=== PATIENT | female | born 1950 ===

== ENCOUNTER 2019-09-08 18:20 | Inpatient (IN) | payer MEDICARE, BC ==
[2019-09-09 01:08] VITALS: BP 124/67
[2019-09-09] MEDS: Atorvastatin Calcium 10 MG TAB PO SCH (08:39)
[2019-09-09] MEDS: Levothyroxine 0.05 Mg Tab PO SCH (08:39)
[2019-09-09] MEDS: Pantoprazole 40 mg/Packet PO SCH ×2 (08:40→16:50)
[2019-09-09] MEDS: Fish Oil 1,000 MG SGL PO SCH (08:40)
[2019-09-09] MEDS: Aspirin 81mg Chewable Tab PO SCH (08:42)
[2019-09-09] MEDS: POLYETHYLENE GLYCOL 3350 17 GM PACK PO SCH (08:42)
[2019-09-09 11:14] LABS: CREATININE - SERUM 0.95 mg/dL (0.70-1.30); POTASSIUM SERUM 3.9 mmol/L (3.5-5.1)
[2019-09-09 11:15] LABS: BILIRUBIN,TOTAL 0.7 mg/dL (0.0-1.0); CALCIUM SERUM 9.5 mg/dL (8.4-10.2); RED BLOOD COUNT 4.59 MIL/uL (4.2-6.2); TOTAL PROTEIN,SERUM 7.6 g/dL (6.4-8.3); WHITE BLOOD COUNT 8.3 K/uL (4.8-10.8)
[2019-09-09 11:24] LABS: HEMATOCRIT 41.2 % (41.0-60); HEMOGLOBIN 13.6 gm/dL (12-16)
[2019-09-09 11:25] LABS: BASOPHILS % (AUTO) 0.4 % (0.0-2.0); EOSINOPHILS # (AUTO) 0.3 Th/cmm (0.1-0.4); LYMPHOCYTES # (AUTO) 2.2 Th/cmm (1.5-3.0); LYMPHOCYTES % (AUTO) 26.3 % (20.0-50.0); MEAN CORPUSCULAR HEMOGLOBIN 29.5 pg (27.0-31.0); MEAN CORPUSCULAR HGB CONC 32.9 pg (28.0-36.0); MEAN CORPUSCULAR VOLUME 89.9 fl (81-100); MONOCYTES # (AUTO) 0.6 Th/cmm (0.3-1.0); MONOCYTES % (AUTO) 7.3 % (2.0-10.0); NEUTROPHILS # (AUTO) 5.2 Th/cmm (1.8-8.0); PLATELET COUNT 265 Th/cmm (150-400); RED CELL DISTRIBUTION WIDTH 13.8 % (11.5-20.0)
--- NOTE | 2019-09-09 16:05 | History and Physical ---
History of Present Illness - HPI Chief Complaint: Psychosis HPI: * Transferred from [facility] * Admitted for Catatonia * Per transfer order, catatonia possibly due to previous medication titration at previous psychiatric hospital Vital Signs: Last Vital Signs Temp 98.6 F 09/09/19 14:00 Pulse 66 09/09/19 14:00 Resp 20 09/09/19 14:00 BP 146/73 09/09/19 14:00 Pulse Ox 95 09/09/19 14:00 Past Medical History Cardiovascular: Report: CAD, HTN, Hyperlipidemia GAME PROGRAMER: Report: CVA, Peripheral neuropathy Psych: Report: Bipolar, Other (Catatonia Insomnia) Musculoskeletal: Report: Other (Impaired functional mobility, balance and gait) Rheumatologic: Report: Fibromyalgia Renal/: Report: UTI Endocrine: Report: Hypothyroidism - Past Surgical History Past Surgical History: Cholecystectomy, Other (Total Abdominal Hysterectomy) Family Medical History - Family Member Mother Living Status: Unknown Hx Family Coronary Artery Disease: Yes Hx Family Diabetes: Yes Other Medical History: heart attack Social History Smoke: No Alcohol: None Drugs: None Lives: With Family - Medications Home Medications: Home Medication Medication Instructions Recorded Type Aspirin [Aspirin Chewable] 1 tab PO DAILY 09/09/19 History Atorvastatin Calcium [Lipitor] 10 mg PO DAILY 09/09/19 History Clopidogrel [Plavix] 75 mg PO DAILY 09/09/19 History Fish Oil [[place] 3] 1,000 mg PO DAILY 09/09/19 History Levothyroxine [Synthroid] 50 mcg PO DAILY 09/09/19 History Losartan Potassium [Cozaar] 25 mg PO DAILY 09/09/19 History Pantoprazole Sodium [Protonix] 20 mg PO BIDAC 09/09/19 History Polyethylene Glycol 3350 [Miralax] 17 gm PO DAILY 09/09/19 History Sennosides A and B [Senna] 2 tab PO HS 09/09/19 History amLODIPine Besylate [Norvasc] 10 mg PO DAILY 09/09/19 History - Allergies Allergies/Adverse Reactions: Allergies Allergy/AdvReac Type Severity Reaction Status Date / Time codeine Allergy Unknown Verified 09/09/19 01:05 amlodipine Allergy Verified 09/09/19 01:07 propoxyphene Allergy Verified 09/09/19 01:06 Sulfa (Sulfonamide Allergy Verified 09/09/19 01:06 Antibiotics) valsartan Allergy Verified 09/09/19 01:07 Review of Systems - Review of Systems Constitutional: Report: Weakness, Malaise Eyes: Report: No Significant ENT: Report: No Significant Respiratory: Report: No Significant Cardiovascular: Report: No Significant Gastrointestinal: Report: No Significant Genitourinary: Report: No Significant Musculoskeletal: Report: No Significant Skin: Report: No Significant Neurological: Report: Weakness, Confusion Physical Exam - Physical Exam HEENT: Report: Ears Nose Throat within normal limits, Pharnyx within normal limits Neck: Report: Within normal limits Cardiovascular Systems: Report: Regular, Rate and Rhythm, no murmurs noted Respiratory: Report: Clear to Auscultation of lung ridley, Breath Sounds are within normal limits Abdomen: Report: Non-tender to palpation, Bowel Sounds are within normal limits Back: Report: Inspection of back is within normal limits. Extremities: Report: Non-tender to palpation., No pedal edema was noted on inspection Skin: Report: Color of skin is within normal limits, Warm, Dry, No Rashes noted of the skin Neuro/Psych: Report: A+Ox3 (Grossly intact), Other (Grossly intact) Other Systems Exam: Unable to do Cranial Nerve Assessment due to patient's catatonic state Patient is unable to participate in examination - Lab Results All Lab Results last 24 hours: Laboratory Results - last 24 hr 09/09/19 09/09/19 09:40 09:40 WBC 8.3 RBC 4.59 Hgb 13.6 Hct 41.2 MCV 89.9 MCH 29.5 MCHC Differential 32.9 RDW 13.8 Plt Count 265 MPV 9.0 Neutrophils % 63.0 Lymphocytes % 26.3 Monocytes % 7.3 Eosinophils % 3.0 Basophils % 0.4 Sodium 137 Potassium 3.9 Chloride 102 Carbon Dioxide 25 Anion Gap 14 BUN 8 Creatinine 0.95 Glucose 114 H Calcium 9.5 Total Bilirubin 0.7 AST 25 ALT 36 Alkaline Phosphatase 140 H Total Protein 7.6 Albumin 3.4 - Assessment Assessment: * Catatonia * H/O UTI * Bipolar Disorder (Type I) * Impaired functional mobility, balance and gait * CVD * Hypothyroidism * Hyperlipidemia * Hypertension * Fibromyalgia * Insomnia * Neuropathy * s/p ELISSA * s/p Cholecystectomy - Plan Plan: * Admitted to [facility]ero[facility] Unit * Psychiatry Consult * Continue home meds * Continue meds from previous hospital * Obtain labs in am
--- NOTE | 2019-09-10 00:34 | Psychiatric Evaluation ---
DATE OF SERVICE: PSYCHIATRIC INITIAL EVALUATION AND MENTAL STATUS EXAMINATION AGE: 69. SEX: Female. PHYSICIAN: Dr. Harris. Also, Dr. Ford. CHIEF COMPLAINT: Catatonic behavior. HISTORY OF PRESENT ILLNESS: The patient is a 69-year-old female who was transferred to the hospital from [facility] because of persistent catatonia. The patient's brought her to the [facility] for evaluation. The patient was released after she was in inpatient psychiatric hospital for 17 days and after from staying home, the patient's brought her back to [facility]. The patient was started of Seroquel, according to the records and the patient was started on Zoloft and Aricept since she was discharged. The patient has been refusing to take medications and the patient also has not been eating or drinking much. The patient also has not been able to talk or verbalize her feelings. The patient is still catatonic and nonverbal. The patient also was not taking any psychotropic except Ativan. The patient also still has flat affect and poor intake. PAST PSYCHIATRIC HISTORY: The patient has history of bipolar disorder and the patient was on Seroquel. She also was taking Zoloft, both were tapered. Currently on oral Ativan on p.r.n. basis. PAST MEDICAL HISTORY: The patient has a history of urinary tract infection. The patient also has currently poor intake. The patient has also history of hypercholesterolemia, hypertension, neuropathy and hypothyroidism. SOCIAL HISTORY: The patient is and lives with her . FAMILY MEDICAL HISTORY: There is history of diabetes mellitus and heart problems in the family. SOCIAL HISTORY: The patient is and lives with her . She is unemployed. The patient does not drink alcohol or use any street drugs or smoking cigarettes. ALLERGIES: The patient is allergic to CODEINE and SULFA DRUGS as well as AMLODIPINE and PROPOXYPHENE. MENTAL STATUS EXAMINATION: The patient has flat affect. Mood seems to be depressed. Not answering questions. The patient seems to be preoccupied and responding. The patient is alert, but unable to assess her orientation or memory because of lack of response and answering to questions because of her catatonia. Poor insight and judgment. ASSESSMENT: PRIMARY DIAGNOSIS: Bipolar disorder, depressed episode, severe. SECONDARY DIAGNOSIS: Catatonia. MEDICAL DIAGNOSES: 1. Hypertension. 2. Hyperlipidemia. 3. Hypothyroidism. TREATMENT PLAN: Monitor the patient's behavior and condition closely. Hold psychotropic medications until further evaluation. Also, continue Ativan on a p.r.n. basis. ESTIMATED LENGTH OF STAY: 7-10 days. PATIENT'S STRENGTHS AND WEAKNESSES: The patient seems to be in relatively fair health. She also has supportive . Weaknesses is her ineffective coping and catatonia. AFTER DISCHARGE PLAN: Most probably, the patient will return to live with her after resolving her catatonic features. Outpatient treatment and followup to continue as an outpatient. CRITERIA FOR DISCHARGE: The patient will not be catatonic and will stabilize on psychotropic medications and establish outpatient treatment plans. JOB# [id number]
[2019-09-10] MEDS: Pantoprazole 40 mg/Packet PO SCH ×2 (06:38→15:33)
[2019-09-10] MEDS: POLYETHYLENE GLYCOL 3350 17 GM PACK PO SCH (09:14)
[2019-09-10] MEDS: Levothyroxine 0.05 Mg Tab PO SCH (09:14)
[2019-09-10] MEDS: Atorvastatin Calcium 10 MG TAB PO SCH (09:14)
[2019-09-10] MEDS: Fish Oil 1,000 MG SGL PO SCH (09:14)
[2019-09-10] MEDS: Aspirin 81mg Chewable Tab PO SCH (09:14)
--- NOTE | 2019-09-10 13:48 | Internal Medicine Prog Note ---
Internal Medicine Subjective - Subjective Service Date: 09/10/19 Patient seen and examined:: without staff Patient is:: awake Per staff patient has:: no adverse event, no episodes of fall Internal Medicine Objective - Results Result Diagrams: 09/09/19 09:40 09/09/19 09:40 Recent Labs: Laboratory Last Values WBC 8.3 K/uL (4.8-10.8) 09/09/19 09:40 RBC 4.59 MIL/uL (4.2-6.2) 09/09/19 09:40 Hgb 13.6 gm/dL (12-16) 09/09/19 09:40 Hct 41.2 % (41.0-60) 09/09/19 09:40 MCV 89.9 fl (81-100) 09/09/19 09:40 MCH 29.5 pg (27.0-31.0) 09/09/19 09:40 MCHC Differential 32.9 pg (28.0-36.0) 09/09/19 09:40 RDW 13.8 % (11.5-20.0) 09/09/19 09:40 Plt Count 265 Th/cmm (150-400) 09/09/19 09:40 MPV 9.0 fl 09/09/19 09:40 Neutrophils % 63.0 % (40.0-80.0) 09/09/19 09:40 Lymphocytes % 26.3 % (20.0-50.0) 09/09/19 09:40 Monocytes % 7.3 % (2.0-10.0) 09/09/19 09:40 Eosinophils % 3.0 % (0.0-5.0) 09/09/19 09:40 Basophils % 0.4 % (0.0-2.0) 09/09/19 09:40 Sodium 137 mmol/L (136-145) 09/09/19 09:40 Potassium 3.9 mmol/L (3.5-5.1) 09/09/19 09:40 Chloride 102 mmol/L (98-107) 09/09/19 09:40 Carbon Dioxide 25 mmol/L (23-29) 09/09/19 09:40 Anion Gap 14 (5-15) 09/09/19 09:40 BUN 8 mg/dL (8-21) 09/09/19 09:40 Creatinine 0.95 mg/dL (0.70-1.30) 09/09/19 09:40 Glucose 114 mg/dL (70-99) H 09/09/19 09:40 Calcium 9.5 mg/dL (8.4-10.2) 09/09/19 09:40 Total Bilirubin 0.7 mg/dL (0.0-1.0) 09/09/19 09:40 AST 25 U/L (10-37) 09/09/19 09:40 ALT 36 U/L (12-78) 09/09/19 09:40 Alkaline Phosphatase 140 U/L (46-116) H 09/09/19 09:40 Total Protein 7.6 g/dL (6.4-8.3) 09/09/19 09:40 Albumin 3.4 g/dL (3.4-5.0) 09/09/19 09:40 - Physical Exam Vitals and I&O: Vital Signs Temp 98.6 F 09/10/19 06:44 Pulse 74 09/10/19 06:44 Resp 19 09/10/19 08:00 BP 144/71 09/10/19 06:44 Pulse Ox 92 09/10/19 06:44 Intake & Output 09/09/19 09/10/19 09/10/19 18:59 06:59 18:59 Intake Total 820 120 Balance 820 120 Intake: Oral 820 120 Other: # Voids 1 # Bowel Movements 1 0 Active Medications: Current Medications Acetaminophen (Tylenol) 650 mg PO Q4H PRN PRN Reason: Pain (Mild 1-3) Stop: 11/08/19 01:07 Last Admin: 09/09/19 10:15 Dose: 650 mg Aspirin (Aspirin Chewable) 81 mg PO QDPC [facility] Stop: 11/08/19 08:59 Last Admin: 09/10/19 09:14 Dose: 81 mg Atorvastatin Calcium (Lipitor) 10 mg PO DAILY [facility]; Protocol Stop: 11/08/19 08:59 Last Admin: 09/10/19 09:14 Dose: 10 mg Clopidogrel Bisulfate (Plavix) 75 mg PO DAILY [facility] Stop: 11/08/19 08:59 Last Admin: 09/10/19 09:14 Dose: 75 mg Fish Oil ([place] 3) 1,000 mg PO DAILY [facility] Stop: 11/08/19 08:59 Last Admin: 09/10/19 09:14 Dose: 1,000 mg Levofloxacin (Levaquin) 500 mg PO DAILY [facility] Stop: 09/15/19 09:01 Last Admin: 09/10/19 09:14 Dose: 500 mg Levothyroxine Sodium (Synthroid) 0.05 mg PO DAILY [facility] Stop: 11/08/19 08:59 Last Admin: 09/10/19 09:14 Dose: 0.05 mg Lorazepam (Ativan) 0.5 mg PO Q4HR PRN; Protocol PRN Reason: Anxiety Stop: 10/09/19 01:07 Mirtazapine (Remeron) 7.5 mg PO HS [facility]; Protocol Stop: 11/09/19 20:59 Pantoprazole Sodium (Protonix) 20 mg PO BIDAC [facility] Stop: 11/08/19 07:29 Last Admin: 09/10/19 06:38 Dose: 20 mg Polyethylene Glycol (Miralax) 17 gm PO DAILY [facility] Stop: 11/08/19 08:59 Last Admin: 09/10/19 09:14 Dose: 17 gm Senna (Senna) 17.2 mg PO HS [facility] Stop: 11/08/19 20:59 Last Admin: 09/09/19 20:39 Dose: 17.2 mg Zolpidem Tartrate (Ambien) 5 mg PO HSMR1 PRN PRN Reason: Insomnia Stop: 11/08/19 01:07 General: weak HEENT: NC/AT, PERRLA Neck: Supple Lungs: CTAB Cardiovascular: RRR, Normal S1, Normal S2 Abdomen: soft Extremities: clear Internal Medicine Assmt/Plan - Assessment Assessment: 1. HTN 2. Hx of CVA 3. Hypothyroidism - Plan Plan: continue supportive care continue same meds reviewed medical records from outside hospital d/w r.n.
--- NOTE | 2019-09-10 17:08 | Progress Notes ---
DATE: 09/10/2019 SUBJECTIVE: A 69-year-old female transferred to the hospital from [facility] with persistent catatonia. The patient's brought the patient to the hospital. She had already been at another hospital. The patient mostly stares blankly, not really interactive, just knows her name. She does not know where she is or why she is here. She does not know the year, the month. The patient with an apparent history of poor medication compliance, currently on dosing of atorvastatin. The patient poorly oriented. She is taking her medications. The patient is able to follow some basic commands directions. MENTAL STATUS EXAMINATION: Stated age, fair eye contact, staring blankly, says almost nothing, hard to interview because she really just is very distracted. Difficult to in fact fully assess her thought processes. PLAN: We will continue to monitor, somewhat complex case given that she is hard to interview. Going to start her on a small dose of mirtazapine to try to alleviate her depressive symptoms. We will continue to monitor on an inpatient basis. [facility]# [id number]
[2019-09-11] MEDS: Pantoprazole 40 mg/Packet PO SCH ×2 (06:39→15:53)
[2019-09-11] MEDS: Levothyroxine 0.05 Mg Tab PO SCH (09:16)
[2019-09-11] MEDS: POLYETHYLENE GLYCOL 3350 17 GM PACK PO SCH (09:16)
[2019-09-11] MEDS: Fish Oil 1,000 MG SGL PO SCH (09:17)
[2019-09-11] MEDS: Atorvastatin Calcium 10 MG TAB PO SCH (09:17)
[2019-09-11] MEDS: Aspirin 81mg Chewable Tab PO SCH (09:17)
--- NOTE | 2019-09-11 13:34 | Internal Medicine Prog Note ---
Internal Medicine Subjective - Subjective Service Date: 09/11/19 Patient seen and examined:: without staff (still saying things that don't make sense) Patient is:: awake Per staff patient has:: no adverse event, no episodes of fall Internal Medicine Objective - Results Result Diagrams: 09/09/19 09:40 09/09/19 09:40 Recent Labs: Laboratory Last Values WBC 8.3 K/uL (4.8-10.8) 09/09/19 09:40 RBC 4.59 MIL/uL (4.2-6.2) 09/09/19 09:40 Hgb 13.6 gm/dL (12-16) 09/09/19 09:40 Hct 41.2 % (41.0-60) 09/09/19 09:40 MCV 89.9 fl (81-100) 09/09/19 09:40 MCH 29.5 pg (27.0-31.0) 09/09/19 09:40 MCHC Differential 32.9 pg (28.0-36.0) 09/09/19 09:40 RDW 13.8 % (11.5-20.0) 09/09/19 09:40 Plt Count 265 Th/cmm (150-400) 09/09/19 09:40 MPV 9.0 fl 09/09/19 09:40 Neutrophils % 63.0 % (40.0-80.0) 09/09/19 09:40 Lymphocytes % 26.3 % (20.0-50.0) 09/09/19 09:40 Monocytes % 7.3 % (2.0-10.0) 09/09/19 09:40 Eosinophils % 3.0 % (0.0-5.0) 09/09/19 09:40 Basophils % 0.4 % (0.0-2.0) 09/09/19 09:40 Sodium 137 mmol/L (136-145) 09/09/19 09:40 Potassium 3.9 mmol/L (3.5-5.1) 09/09/19 09:40 Chloride 102 mmol/L (98-107) 09/09/19 09:40 Carbon Dioxide 25 mmol/L (23-29) 09/09/19 09:40 Anion Gap 14 (5-15) 09/09/19 09:40 BUN 8 mg/dL (8-21) 09/09/19 09:40 Creatinine 0.95 mg/dL (0.70-1.30) 09/09/19 09:40 Glucose 114 mg/dL (70-99) H 09/09/19 09:40 Calcium 9.5 mg/dL (8.4-10.2) 09/09/19 09:40 Total Bilirubin 0.7 mg/dL (0.0-1.0) 09/09/19 09:40 AST 25 U/L (10-37) 09/09/19 09:40 ALT 36 U/L (12-78) 09/09/19 09:40 Alkaline Phosphatase 140 U/L (46-116) H 09/09/19 09:40 Total Protein 7.6 g/dL (6.4-8.3) 09/09/19 09:40 Albumin 3.4 g/dL (3.4-5.0) 09/09/19 09:40 - Physical Exam Vitals and I&O: Vital Signs Temp 97.9 F 09/11/19 06:04 Pulse 66 09/11/19 06:04 Resp 18 09/11/19 07:37 BP 138/69 09/11/19 06:04 Pulse Ox 93 09/11/19 06:04 Intake & Output 09/10/19 09/11/19 09/11/19 18:59 06:59 18:59 Intake Total 1000 240 Balance 1000 240 Intake: Oral 1000 240 Other: # Voids 3 2 # Bowel Movements 1 Active Medications: Current Medications Acetaminophen (Tylenol) 650 mg PO Q4H PRN PRN Reason: Pain (Mild 1-3) Stop: 11/08/19 01:07 Last Admin: 09/10/19 15:03 Dose: 650 mg Aspirin (Aspirin Chewable) 81 mg PO QDPC [facility] Stop: 11/08/19 08:59 Last Admin: 09/11/19 09:17 Dose: 81 mg Atorvastatin Calcium (Lipitor) 10 mg PO DAILY [facility]; Protocol Stop: 11/08/19 08:59 Last Admin: 09/11/19 09:17 Dose: 10 mg Clopidogrel Bisulfate (Plavix) 75 mg PO DAILY [facility] Stop: 11/08/19 08:59 Last Admin: 09/11/19 09:17 Dose: 75 mg Fish Oil ([place] 3) 1,000 mg PO DAILY [facility] Stop: 11/08/19 08:59 Last Admin: 09/11/19 09:17 Dose: 1,000 mg Levofloxacin (Levaquin) 500 mg PO DAILY [facility] Stop: 09/15/19 09:01 Last Admin: 09/11/19 09:17 Dose: 500 mg Levothyroxine Sodium (Synthroid) 0.05 mg PO DAILY [facility] Stop: 11/08/19 08:59 Last Admin: 09/11/19 09:16 Dose: 0.05 mg Lorazepam (Ativan) 0.5 mg PO Q4HR PRN; Protocol PRN Reason: Anxiety Stop: 10/09/19 01:07 Mirtazapine (Remeron) 7.5 mg PO HS [facility]; Protocol Stop: 11/09/19 20:59 Last Admin: 09/10/19 21:10 Dose: 7.5 mg Pantoprazole Sodium (Protonix) 20 mg PO BIDAC [facility] Stop: 11/08/19 07:29 Last Admin: 09/11/19 06:39 Dose: 20 mg Polyethylene Glycol (Miralax) 17 gm PO DAILY [facility] Stop: 11/08/19 08:59 Last Admin: 09/11/19 09:16 Dose: 17 gm Senna (Senna) 17.2 mg PO HS [facility] Stop: 11/08/19 20:59 Last Admin: 09/10/19 21:10 Dose: 17.2 mg Zolpidem Tartrate (Ambien) 5 mg PO HSMR1 PRN PRN Reason: Insomnia Stop: 11/08/19 01:07 Last Admin: 09/10/19 21:10 Dose: 5 mg General: weak HEENT: NC/AT, PERRLA Neck: Supple Lungs: CTAB Cardiovascular: RRR, Normal S1, Normal S2 Abdomen: soft Extremities: clear Internal Medicine Assmt/Plan - Assessment Assessment: 1. HTN 2. Hx of CVA 3. Hypothyroidism 4. UTI - Plan Plan: continue Levaquin continue same meds reviewed medical records from outside hospital d/w r.n.
--- NOTE | 2019-09-11 14:51 | Progress Notes ---
DATE: 09/11/2019 SUBJECTIVE: This is a 69-year-old female, currently in the hospital, noted to be withdrawn, isolative, slow to respond, not answering when I ask her any questions, but per staff, she sometimes tells staff her name. Slept for about 8-1/2 hours, mostly withdrawn, mostly keeps to self, very difficult interview. She does not really say much to me. I tried to talk to her, but do not get much feedback from her. Discussed with staff at length. Slept better with the Remeron. PLAN: We will continue inpatient monitoring. This is a 69-year-old female with ongoing behavioral disturbances, slow to respond. Continue slow titration of medication. JOB# [id number]
[2019-09-12] MEDS: Pantoprazole 40 mg/Packet PO SCH ×2 (06:41→16:26)
[2019-09-12] MEDS: Aspirin 81mg Chewable Tab PO SCH (08:09)
[2019-09-12] MEDS: Levothyroxine 0.05 Mg Tab PO SCH (08:09)
[2019-09-12] MEDS: Atorvastatin Calcium 10 MG TAB PO SCH (08:09)
[2019-09-12] MEDS: Fish Oil 1,000 MG SGL PO SCH (08:11)
[2019-09-12] MEDS: POLYETHYLENE GLYCOL 3350 17 GM PACK PO SCH (08:28)
--- NOTE | 2019-09-12 16:57 | Progress Notes ---
DATE: 09/12/2019 SUBJECTIVE: A 69-year-old female transferred to the hospital from [facility]. Persistent catatonia. Apparently, the patient is not overtly catatonic. She is answering some questions. She tells me her name. She tells me she is in the hospital. She does not know the year. She does not know the month, stating this is February, stating that it is 1934, contacted me I will be trying to reach out to him today. The patient requiring a lot of prompting, redirection, mostly stares blankly, lying in bed, able to swallow her medications. The patient mostly withdrawn, keeps to self, just stares blankly. No overt agitation, concerns about her ability to care for her basic needs, selectively mute in the last month. She apparently declined as to why she ended up in the hospital. Medications were reviewed. Labs reviewed. Vitals reviewed, blood pressure 144/85, pulse 64. ASSESSMENT: A 69-year-old female catatonic spectrum. She is minimally interactive, needing a lot of prompting, redirection, contact her today to increase information. The patient currently on dosing of Remeron. JOB# [id number]
--- NOTE | 2019-09-12 17:38 | Progress Notes ---
DATE: 09/12/2019 I contacted the patient's at [phone], line just kept ringing and ringing and ringing, no answer, no voice mailbox. JOB# [id number]
--- NOTE | 2019-09-12 18:36 | Internal Medicine Prog Note ---
Internal Medicine Subjective - Subjective Service Date: 09/12/19 Patient seen and examined:: without staff Patient is:: awake Per staff patient has:: no adverse event, no episodes of fall Internal Medicine Objective - Results Result Diagrams: 09/09/19 09:40 09/09/19 09:40 Recent Labs: Laboratory Last Values WBC 8.3 K/uL (4.8-10.8) 09/09/19 09:40 RBC 4.59 MIL/uL (4.2-6.2) 09/09/19 09:40 Hgb 13.6 gm/dL (12-16) 09/09/19 09:40 Hct 41.2 % (41.0-60) 09/09/19 09:40 MCV 89.9 fl (81-100) 09/09/19 09:40 MCH 29.5 pg (27.0-31.0) 09/09/19 09:40 MCHC Differential 32.9 pg (28.0-36.0) 09/09/19 09:40 RDW 13.8 % (11.5-20.0) 09/09/19 09:40 Plt Count 265 Th/cmm (150-400) 09/09/19 09:40 MPV 9.0 fl 09/09/19 09:40 Neutrophils % 63.0 % (40.0-80.0) 09/09/19 09:40 Lymphocytes % 26.3 % (20.0-50.0) 09/09/19 09:40 Monocytes % 7.3 % (2.0-10.0) 09/09/19 09:40 Eosinophils % 3.0 % (0.0-5.0) 09/09/19 09:40 Basophils % 0.4 % (0.0-2.0) 09/09/19 09:40 Sodium 137 mmol/L (136-145) 09/09/19 09:40 Potassium 3.9 mmol/L (3.5-5.1) 09/09/19 09:40 Chloride 102 mmol/L (98-107) 09/09/19 09:40 Carbon Dioxide 25 mmol/L (23-29) 09/09/19 09:40 Anion Gap 14 (5-15) 09/09/19 09:40 BUN 8 mg/dL (8-21) 09/09/19 09:40 Creatinine 0.95 mg/dL (0.70-1.30) 09/09/19 09:40 Glucose 114 mg/dL (70-99) H 09/09/19 09:40 Calcium 9.5 mg/dL (8.4-10.2) 09/09/19 09:40 Total Bilirubin 0.7 mg/dL (0.0-1.0) 09/09/19 09:40 AST 25 U/L (10-37) 09/09/19 09:40 ALT 36 U/L (12-78) 09/09/19 09:40 Alkaline Phosphatase 140 U/L (46-116) H 09/09/19 09:40 Total Protein 7.6 g/dL (6.4-8.3) 09/09/19 09:40 Albumin 3.4 g/dL (3.4-5.0) 09/09/19 09:40 - Physical Exam Vitals and I&O: Vital Signs Temp 97 F 09/12/19 16:30 Pulse 58 09/12/19 16:30 Resp 20 09/12/19 16:30 BP 166/69 09/12/19 16:30 Pulse Ox 96 09/12/19 16:30 Intake & Output 09/11/19 09/12/19 09/12/19 18:59 06:59 18:59 Intake Total 850 120 Balance 850 120 Intake: Oral 850 120 Other: # Voids 2 # Bowel Movements 1 0 Active Medications: Current Medications Acetaminophen (Tylenol) 650 mg PO Q4H PRN PRN Reason: Pain (Mild 1-3) Stop: 11/08/19 01:07 Last Admin: 09/12/19 10:06 Dose: 650 mg Aspirin (Aspirin Chewable) 81 mg PO QDPC [facility] Stop: 11/08/19 08:59 Last Admin: 09/12/19 08:09 Dose: 81 mg Atorvastatin Calcium (Lipitor) 10 mg PO DAILY [facility]; Protocol Stop: 11/08/19 08:59 Last Admin: 09/12/19 08:09 Dose: 10 mg Clopidogrel Bisulfate (Plavix) 75 mg PO DAILY [facility] Stop: 11/08/19 08:59 Last Admin: 09/12/19 08:10 Dose: 75 mg Fish Oil ([place] 3) 1,000 mg PO DAILY [facility] Stop: 11/08/19 08:59 Last Admin: 09/12/19 08:11 Dose: 1,000 mg Levofloxacin (Levaquin) 500 mg PO DAILY [facility] Stop: 09/15/19 09:01 Last Admin: 09/12/19 08:10 Dose: 500 mg Levothyroxine Sodium (Synthroid) 0.05 mg PO DAILY [facility] Stop: 11/08/19 08:59 Last Admin: 09/12/19 08:09 Dose: 0.05 mg Lorazepam (Ativan) 0.5 mg PO Q4HR PRN; Protocol PRN Reason: Anxiety Stop: 10/09/19 01:07 Mirtazapine (Remeron) 7.5 mg PO HS [facility]; Protocol Stop: 11/09/19 20:59 Last Admin: 09/11/19 20:56 Dose: 7.5 mg Pantoprazole Sodium (Protonix) 20 mg PO BIDAC [facility] Stop: 11/08/19 07:29 Last Admin: 09/12/19 16:26 Dose: 20 mg Polyethylene Glycol (Miralax) 17 gm PO DAILY [facility] Stop: 11/08/19 08:59 Last Admin: 09/12/19 08:28 Dose: 17 gm Senna (Senna) 17.2 mg PO HS [facility] Stop: 11/08/19 20:59 Last Admin: 09/11/19 20:55 Dose: 17.2 mg Zolpidem Tartrate (Ambien) 5 mg PO HSMR1 PRN PRN Reason: Insomnia Stop: 11/08/19 01:07 Last Admin: 09/11/19 20:55 Dose: 5 mg General: weak HEENT: NC/AT, PERRLA Neck: Supple Lungs: CTAB Cardiovascular: RRR, Normal S1, Normal S2 Abdomen: soft Extremities: clear Internal Medicine Assmt/Plan - Assessment Assessment: 1. HTN 2. Hx of CVA 3. Hypothyroidism - Plan Plan: check TSH continue same meds reviewed medical records from outside hospital d/w r.n. Nutritional Asmnt/Malnutr-PDOC - Dietary Evaluation Malnutrition Findings (Please click <Entered> for more info): Nutritional Asmnt/Malnutrition Start: 09/12/19 16: 23 Text: Status: Complete Freq: Protocol: Document 09/12/19 16:23 KAVON (Rec: 09/12/19 16:28 KAVON [email or web address] -[id number]) Nutritional Asmnt/Malnutrition Patient General Information Nutritional Screening Moderate Risk Diagnosis catatonia Pertinent Medical Hx/Surgical Hx CAD, HTN, Hyperlipidemia, CVA, Peripheral neuropathy, Bipolar, Catatonia insomnia, Fibromyalgia, UTI, Hypothyroidism, Cholecystectomy, Total abdominal hysterectomy Subjective Information Pt is a 53-year-old male admitted on 09/07 d/t catatonia . Pt is eating an estimated 53 % x3days of meals Per Meal/ Nutrition Activity Record. Dietary is currently providing an estimated 2000 kcals and 102 gm Pro, per Pt PO intake this is providing an estimated 1060 kcals and 54gm Pro to meet 79% kcal and 98% Pro needs- adequate. Per nurse note (09/10), SW spoke with pts and he stated pt is independent, makes her own food, eats on her own and they take care of one another. Recommending diet Rx modification, add Cardiac d/t BMI >30- completed. Visited pt in room, pt stated she does the cooking at home, but doesnt follow any diet and just cooks what she wants. Pt stated she does not try to eat a lot of healthy foods but would accept take home education materials to read once out, will place in d/c packet. Anthropometrics HT: 55 WT: 215 LB (97.7 kg) ABW: 147.5 (67.0 kg) BMI: 35.77 (Obese Class II) GI/ Skin Integrity GI: WNL, Soft, Non-tender BM: 09/10 x1 I/O: 970/Not Noted Skin: Dryness, pink lower back Mart: 18 Diet Order: Mechanical Soft, Cardiac Estimated Energy Needs: (Obese , ABW) 9212-2324 kcals (20-25 kcals/ kg) 55-65g Pro (0.8-1.0 g/kg) 2461-0319 ml (20-25 ml/kg) Current Diet Order/ Nutrition Support Mechanical Soft, Cardiac Patient / S.O Can Pertinent Medications Plavix, [place]-3, Synthroid, Protonix, Miralax, Senna Pertinent Labs 09/08: Glucose 114, Alk Phos 140 Nutritional Hx/Data Height 1.65 m Height (Calculated Centimeters) 165.1 Current Weight (lbs) 97.522 kg Weight (Calculated Kilograms) 97.5 Weight (Calculated Grams) 45358.4 [place] Body Weight 125 LB (56.82 kg) % [place] Body Weight 172 Body Mass Index (BMI) 35.7 Weight Status Obese GI Symptoms Last BM 09/10 x1 Usual diet at home Regular, does not follow diet Skin Integrity/Comment: Skin: Dryness, pink lower back Mart: 18 Current %PO Fair (50-74%) Estimated Nutritional Goals BEE in Kcals: Adj wt of IBW Calories/Kcals/Kg 20-25 Kcals Calculated 2169-3884 Protein: Adj wt of IBW Protein g/k.8-1.0 Protein Calculated 55-65 Fluid: ml 1540-7618 ml (20-25 ml/kg) Nutritional Problem 2. Problem Problem Food and Nutrition related knowledge deficit Etiology r/t obesity Signs/Symptoms: aeb pt report of cooking what she likes, not following any healthy diet. 1. Problem Problem Obese (Class II) Etiology related to chronic energy overconsumption Signs/Symptoms: as evidenced by BMI >30 (35.77 ). Malnutrition Related to Morbid Obesity Malnutrition related to morbid obesity No Intervention/Recommendation Comments 1.Recommend adding Cardiac to current diet Rx-completed. 2.Basic healthy eating nutrition education in person and take home materials- completed. Expected Outcomes/Goals Expected Outcomes/Goals 1.PO intake to continue to meet >75% of estimated nutritional needs. 2.Monitor PO intake, wt, nutrition related labs, and skin integrity to trend WNL. 3.Gradual wt loss (0.5-1 LB per week) trading towards IBW preferred. 4.F/U as low risk in 7-10 days , -09/21.
[2019-09-13] MEDS: Pantoprazole 40 mg/Packet PO SCH ×2 (06:34→16:46)
[2019-09-13] MEDS: Fish Oil 1,000 MG SGL PO SCH (08:20)
[2019-09-13] MEDS: Atorvastatin Calcium 10 MG TAB PO SCH (08:20)
[2019-09-13] MEDS: Aspirin 81mg Chewable Tab PO SCH (08:20)
[2019-09-13] MEDS: Levothyroxine 0.05 Mg Tab PO SCH (08:20)
[2019-09-13] MEDS: POLYETHYLENE GLYCOL 3350 17 GM PACK PO SCH (08:21)
--- NOTE | 2019-09-13 15:44 | Internal Medicine Prog Note ---
Internal Medicine Subjective - Subjective Service Date: 09/13/19 Patient seen and examined:: without staff Patient is:: awake Per staff patient has:: no adverse event, no episodes of fall Internal Medicine Objective - Results Result Diagrams: 09/09/19 09:40 09/09/19 09:40 Recent Labs: Laboratory Last Values WBC 8.3 K/uL (4.8-10.8) 09/09/19 09:40 RBC 4.59 MIL/uL (4.2-6.2) 09/09/19 09:40 Hgb 13.6 gm/dL (12-16) 09/09/19 09:40 Hct 41.2 % (41.0-60) 09/09/19 09:40 MCV 89.9 fl (81-100) 09/09/19 09:40 MCH 29.5 pg (27.0-31.0) 09/09/19 09:40 MCHC Differential 32.9 pg (28.0-36.0) 09/09/19 09:40 RDW 13.8 % (11.5-20.0) 09/09/19 09:40 Plt Count 265 Th/cmm (150-400) 09/09/19 09:40 MPV 9.0 fl 09/09/19 09:40 Neutrophils % 63.0 % (40.0-80.0) 09/09/19 09:40 Lymphocytes % 26.3 % (20.0-50.0) 09/09/19 09:40 Monocytes % 7.3 % (2.0-10.0) 09/09/19 09:40 Eosinophils % 3.0 % (0.0-5.0) 09/09/19 09:40 Basophils % 0.4 % (0.0-2.0) 09/09/19 09:40 Sodium 137 mmol/L (136-145) 09/09/19 09:40 Potassium 3.9 mmol/L (3.5-5.1) 09/09/19 09:40 Chloride 102 mmol/L (98-107) 09/09/19 09:40 Carbon Dioxide 25 mmol/L (23-29) 09/09/19 09:40 Anion Gap 14 (5-15) 09/09/19 09:40 BUN 8 mg/dL (8-21) 09/09/19 09:40 Creatinine 0.95 mg/dL (0.70-1.30) 09/09/19 09:40 Glucose 114 mg/dL (70-99) H 09/09/19 09:40 Calcium 9.5 mg/dL (8.4-10.2) 09/09/19 09:40 Total Bilirubin 0.7 mg/dL (0.0-1.0) 09/09/19 09:40 AST 25 U/L (10-37) 09/09/19 09:40 ALT 36 U/L (12-78) 09/09/19 09:40 Alkaline Phosphatase 140 U/L (46-116) H 09/09/19 09:40 Total Protein 7.6 g/dL (6.4-8.3) 09/09/19 09:40 Albumin 3.4 g/dL (3.4-5.0) 09/09/19 09:40 - Physical Exam Vitals and I&O: Vital Signs Temp 97.7 F 09/13/19 06:25 Pulse 62 09/13/19 06:25 Resp 20 09/13/19 06:25 BP 155/72 09/13/19 06:25 Pulse Ox 96 09/13/19 06:25 Intake & Output 09/12/19 09/13/19 09/13/19 18:59 06:59 18:59 Intake Total 240 Balance 240 Intake: Oral 240 Other: # Voids 2 # Bowel Movements 0 Active Medications: Current Medications Acetaminophen (Tylenol) 650 mg PO Q4H PRN PRN Reason: Pain (Mild 1-3) Stop: 11/08/19 01:07 Last Admin: 09/12/19 10:06 Dose: 650 mg Aspirin (Aspirin Chewable) 81 mg PO QDPC [facility] Stop: 11/08/19 08:59 Last Admin: 09/13/19 08:20 Dose: 81 mg Atorvastatin Calcium (Lipitor) 10 mg PO DAILY [facility]; Protocol Stop: 11/08/19 08:59 Last Admin: 09/13/19 08:20 Dose: 10 mg Clopidogrel Bisulfate (Plavix) 75 mg PO DAILY [facility] Stop: 11/08/19 08:59 Last Admin: 09/13/19 08:20 Dose: 75 mg Fish Oil ([place] 3) 1,000 mg PO DAILY [facility] Stop: 11/08/19 08:59 Last Admin: 09/13/19 08:20 Dose: 1,000 mg Levofloxacin (Levaquin) 500 mg PO DAILY [facility] Stop: 09/15/19 09:01 Last Admin: 09/13/19 08:20 Dose: 500 mg Levothyroxine Sodium (Synthroid) 0.05 mg PO DAILY [facility] Stop: 11/08/19 08:59 Last Admin: 09/13/19 08:20 Dose: 0.05 mg Lorazepam (Ativan) 0.5 mg PO Q4HR PRN; Protocol PRN Reason: Anxiety Stop: 10/09/19 01:07 Mirtazapine (Remeron) 15 mg PO HS [facility]; Protocol Stop: 11/12/19 20:59 Pantoprazole Sodium (Protonix) 20 mg PO BIDAC [facility] Stop: 11/08/19 07:29 Last Admin: 09/13/19 06:34 Dose: 20 mg Polyethylene Glycol (Miralax) 17 gm PO DAILY [facility] Stop: 11/08/19 08:59 Last Admin: 09/13/19 08:21 Dose: 17 gm Senna (Senna) 17.2 mg PO HS [facility] Stop: 11/08/19 20:59 Last Admin: 09/12/19 20:30 Dose: 17.2 mg Zolpidem Tartrate (Ambien) 5 mg PO HSMR1 PRN PRN Reason: Insomnia Stop: 11/08/19 01:07 Last Admin: 09/12/19 20:31 Dose: 5 mg General: weak HEENT: NC/AT, PERRLA Neck: Supple Lungs: CTAB Cardiovascular: RRR, Normal S1, Normal S2 Abdomen: soft Extremities: clear Internal Medicine Assmt/Plan - Assessment Assessment: 1. HTN 2. Hx of CVA 3. Hypothyroidism - Plan Plan: await TSH results continue synthroid continue same meds reviewed medical records from outside hospital d/w r.n. Nutritional Asmnt/Malnutr-PDOC - Dietary Evaluation Malnutrition Findings (Please click <Entered> for more info): Nutritional Asmnt/Malnutrition Start: 09/12/19 16: 23 Text: Status: Complete Freq: Protocol: Document 09/12/19 16:23 KAVON (Rec: 09/12/19 16:28 KAVON [id number]) Nutritional Asmnt/Malnutrition Patient General Information Nutritional Screening Moderate Risk Diagnosis catatonia Pertinent Medical Hx/Surgical Hx CAD, HTN, Hyperlipidemia, CVA, Peripheral neuropathy, Bipolar, Catatonia insomnia, Fibromyalgia, UTI, Hypothyroidism, Cholecystectomy, Total abdominal hysterectomy Subjective Information Pt is a 53-year-old male admitted on 09/07 d/t catatonia . Pt is eating an estimated 53 % x3days of meals Per Meal/ Nutrition Activity Record. Dietary is currently providing an estimated 2000 kcals and 102 gm Pro, per Pt PO intake this is providing an estimated 1060 kcals and 54gm Pro to meet 79% kcal and 98% Pro needs- adequate. Per nurse note (09/10), SW spoke with pts and he stated pt is independent, makes her own food, eats on her own and they take care of one another. Recommending diet Rx modification, add Cardiac d/t BMI >30- completed. Visited pt in room, pt stated she does the cooking at home, but doesnt follow any diet and just cooks what she wants. Pt stated she does not try to eat a lot of healthy foods but would accept take home education materials to read once out, will place in d/c packet. Anthropometrics HT: 55 WT: 215 LB (97.7 kg) ABW: 147.5 (67.0 kg) BMI: 35.77 (Obese Class II) GI/ Skin Integrity GI: WNL, Soft, Non-tender BM: 09/10 x1 I/O: 970/Not Noted Skin: Dryness, pink lower back Mart: 18 Diet Order: Mechanical Soft, Cardiac Estimated Energy Needs: (Obese , ABW) 8407-4564 kcals (20-25 kcals/ kg) 55-65g Pro (0.8-1.0 g/kg) 6061-0186 ml (20-25 ml/kg) Current Diet Order/ Nutrition Support Mechanical Soft, Cardiac Patient / S.O Can Pertinent Medications Plavix, [place]-3, Synthroid, Protonix, Miralax, Senna Pertinent Labs 09/08: Glucose 114, Alk Phos 140 Nutritional Hx/Data Height 1.65 m Height (Calculated Centimeters) 165.1 Current Weight (lbs) 97.522 kg Weight (Calculated Kilograms) 97.5 Weight (Calculated Grams) 63750.4 [place] Body Weight 125 LB (56.82 kg) % [place] Body Weight 172 Body Mass Index (BMI) 35.7 Weight Status Obese GI Symptoms Last BM 09/10 x1 Usual diet at home Regular, does not follow diet Skin Integrity/Comment: Skin: Dryness, pink lower back Mart: 18 Current %PO Fair (50-74%) Estimated Nutritional Goals BEE in Kcals: Adj wt of IBW Calories/Kcals/Kg 20-25 Kcals Calculated 3291-9487 Protein: Adj wt of IBW Protein g/k.8-1.0 Protein Calculated 55-65 Fluid: ml 9248-6478 ml (20-25 ml/kg) Nutritional Problem 2. Problem Problem Food and Nutrition related knowledge deficit Etiology r/t obesity Signs/Symptoms: aeb pt report of cooking what she likes, not following any healthy diet. 1. Problem Problem Obese (Class II) Etiology related to chronic energy overconsumption Signs/Symptoms: as evidenced by BMI >30 (35.77 ). Malnutrition Related to Morbid Obesity Malnutrition related to morbid obesity No Intervention/Recommendation Comments 1.Recommend adding Cardiac to current diet Rx-completed. 2.Basic healthy eating nutrition education in person and take home materials- completed. Expected Outcomes/Goals Expected Outcomes/Goals 1.PO intake to continue to meet >75% of estimated nutritional needs. 2.Monitor PO intake, wt, nutrition related labs, and skin integrity to trend WNL. 3.Gradual wt loss (0.5-1 LB per week) trading towards IBW preferred. 4.F/U as low risk in 7-10 days , -09/21.
--- NOTE | 2019-09-14 02:23 | Progress Notes ---
DATE: 09/13/2019 SUBJECTIVE: The patient slept about 8 hours. She is actually more interactive with me, able to tell me her name. She tells me where she is. She states the year is 1978. She does not know the month. She really is not quite sure why she is in the hospital, anxious per staff, fearful of others. She is pretty forgetful, eating about 50% of her food. She is actually also walking around more, no longer needing the wheelchair. telling staff that she has been doing better. He is happy with her progress. Better eye contact on exam. ____. I was not able to reach him, I will try again today. No overt SI or HI. The patient does seem to be somewhat internally preoccupied, but seems more anxious. Medications reviewed. Labs were reviewed. Vitals were reviewed. I spent extensive time with the patient and also discussion with staff, attempt to time on the phone with . ASSESSMENT: A 69-year-old female with ongoing behavioral disturbances, mild improvement noted. Complex case, hard to control symptoms. I will be increasing dosing of mirtazapine. She seems to be responding to this medication. JOB# [id number]
[2019-09-14] MEDS: Pantoprazole 40 mg/Packet PO SCH ×2 (06:52→17:00)
[2019-09-14] MEDS: POLYETHYLENE GLYCOL 3350 17 GM PACK PO SCH (08:57)
[2019-09-14] MEDS: Levothyroxine 0.05 Mg Tab PO SCH (08:58)
[2019-09-14] MEDS: Atorvastatin Calcium 10 MG TAB PO SCH (08:58)
[2019-09-14] MEDS: Fish Oil 1,000 MG SGL PO SCH (08:58)
[2019-09-14] MEDS: Aspirin 81mg Chewable Tab PO SCH (08:58)
--- NOTE | 2019-09-14 17:46 | Internal Medicine Prog Note ---
Internal Medicine Subjective - Subjective Service Date: 09/14/19 Patient seen and examined:: without staff Patient is:: awake Per staff patient has:: no adverse event, no episodes of fall Internal Medicine Objective - Results Result Diagrams: 09/09/19 09:40 09/09/19 09:40 Recent Labs: Laboratory Last Values WBC 8.3 K/uL (4.8-10.8) 09/09/19 09:40 RBC 4.59 MIL/uL (4.2-6.2) 09/09/19 09:40 Hgb 13.6 gm/dL (12-16) 09/09/19 09:40 Hct 41.2 % (41.0-60) 09/09/19 09:40 MCV 89.9 fl (81-100) 09/09/19 09:40 MCH 29.5 pg (27.0-31.0) 09/09/19 09:40 MCHC Differential 32.9 pg (28.0-36.0) 09/09/19 09:40 RDW 13.8 % (11.5-20.0) 09/09/19 09:40 Plt Count 265 Th/cmm (150-400) 09/09/19 09:40 MPV 9.0 fl 09/09/19 09:40 Neutrophils % 63.0 % (40.0-80.0) 09/09/19 09:40 Lymphocytes % 26.3 % (20.0-50.0) 09/09/19 09:40 Monocytes % 7.3 % (2.0-10.0) 09/09/19 09:40 Eosinophils % 3.0 % (0.0-5.0) 09/09/19 09:40 Basophils % 0.4 % (0.0-2.0) 09/09/19 09:40 Sodium 137 mmol/L (136-145) 09/09/19 09:40 Potassium 3.9 mmol/L (3.5-5.1) 09/09/19 09:40 Chloride 102 mmol/L (98-107) 09/09/19 09:40 Carbon Dioxide 25 mmol/L (23-29) 09/09/19 09:40 Anion Gap 14 (5-15) 09/09/19 09:40 BUN 8 mg/dL (8-21) 09/09/19 09:40 Creatinine 0.95 mg/dL (0.70-1.30) 09/09/19 09:40 Glucose 114 mg/dL (70-99) H 09/09/19 09:40 Calcium 9.5 mg/dL (8.4-10.2) 09/09/19 09:40 Total Bilirubin 0.7 mg/dL (0.0-1.0) 09/09/19 09:40 AST 25 U/L (10-37) 09/09/19 09:40 ALT 36 U/L (12-78) 09/09/19 09:40 Alkaline Phosphatase 140 U/L (46-116) H 09/09/19 09:40 Total Protein 7.6 g/dL (6.4-8.3) 09/09/19 09:40 Albumin 3.4 g/dL (3.4-5.0) 09/09/19 09:40 - Physical Exam Vitals and I&O: Vital Signs Temp 97.2 F 09/14/19 14:18 Pulse 75 09/14/19 14:18 Resp 20 09/14/19 14:18 BP 104/78 09/14/19 14:18 Pulse Ox 96 09/14/19 14:18 Intake & Output 09/13/19 09/14/19 09/14/19 18:59 06:59 18:59 Intake Total 1200 240 Balance 1200 240 Intake: Oral 1200 240 Other: # Voids 2 # Bowel Movements 1 Active Medications: Current Medications Acetaminophen (Tylenol) 650 mg PO Q4H PRN PRN Reason: Pain (Mild 1-3) Stop: 11/08/19 01:07 Last Admin: 09/12/19 10:06 Dose: 650 mg Aripiprazole (Abilify) 5 mg PO DAILY [facility]; Protocol Stop: 11/13/19 08:59 Aspirin (Aspirin Chewable) 81 mg PO QDPC [facility] Stop: 11/08/19 08:59 Last Admin: 09/14/19 08:58 Dose: 81 mg Atorvastatin Calcium (Lipitor) 10 mg PO DAILY [facility]; Protocol Stop: 11/08/19 08:59 Last Admin: 09/14/19 08:58 Dose: 10 mg Clopidogrel Bisulfate (Plavix) 75 mg PO DAILY [facility] Stop: 11/08/19 08:59 Last Admin: 09/14/19 08:58 Dose: 75 mg Fish Oil ([place] 3) 1,000 mg PO DAILY [facility] Stop: 11/08/19 08:59 Last Admin: 09/14/19 08:58 Dose: 1,000 mg Levofloxacin (Levaquin) 500 mg PO DAILY [facility] Stop: 09/15/19 09:01 Last Admin: 09/14/19 08:57 Dose: 500 mg Levothyroxine Sodium (Synthroid) 0.05 mg PO DAILY [facility] Stop: 11/08/19 08:59 Last Admin: 09/14/19 08:58 Dose: 0.05 mg Lorazepam (Ativan) 0.5 mg PO Q4HR PRN; Protocol PRN Reason: Anxiety Stop: 10/09/19 01:07 Losartan Potassium (Cozaar) 25 mg PO DAILY [facility] Stop: 11/14/19 08:59 Mirtazapine (Remeron) 15 mg PO HS [facility]; Protocol Stop: 11/12/19 20:59 Last Admin: 09/13/19 20:56 Dose: 15 mg Pantoprazole Sodium (Protonix) 20 mg PO BIDAC [facility] Stop: 11/08/19 07:29 Last Admin: 09/14/19 06:52 Dose: 20 mg Polyethylene Glycol (Miralax) 17 gm PO DAILY [facility] Stop: 11/08/19 08:59 Last Admin: 09/14/19 08:57 Dose: 17 gm Senna (Senna) 17.2 mg PO HS [facility] Stop: 11/08/19 20:59 Last Admin: 09/13/19 20:56 Dose: 17.2 mg Zolpidem Tartrate (Ambien) 5 mg PO HSMR1 PRN PRN Reason: Insomnia Stop: 11/08/19 01:07 Last Admin: 09/13/19 21:00 Dose: 5 mg General: weak HEENT: NC/AT, PERRLA Neck: Supple Lungs: CTAB Cardiovascular: RRR, Normal S1, Normal S2 Abdomen: soft Extremities: clear Internal Medicine Assmt/Plan - Assessment Assessment: 1. HTN 2. Hx of CVA 3. Hypothyroidism - Plan Plan: continue synthroid continue same meds reviewed medical records from outside hospital d/w r.n. Nutritional Asmnt/Malnutr-PDOC - Dietary Evaluation Malnutrition Findings (Please click <Entered> for more info): Nutritional Asmnt/Malnutrition Start: 09/12/19 16: 23 Text: Status: Complete Freq: Protocol: Document 09/12/19 16:23 KAVON (Rec: 09/12/19 16:28 KAVON [id number] -[id number]) Nutritional Asmnt/Malnutrition Patient General Information Nutritional Screening Moderate Risk Diagnosis catatonia Pertinent Medical Hx/Surgical Hx CAD, HTN, Hyperlipidemia, CVA, Peripheral neuropathy, Bipolar, Catatonia insomnia, Fibromyalgia, UTI, Hypothyroidism, Cholecystectomy, Total abdominal hysterectomy Subjective Information Pt is a 53-year-old male admitted on 09/07 d/t catatonia . Pt is eating an estimated 53 % x3days of meals Per Meal/ Nutrition Activity Record. Dietary is currently providing an estimated 2000 kcals and 102 gm Pro, per Pt PO intake this is providing an estimated 1060 kcals and 54gm Pro to meet 79% kcal and 98% Pro needs- adequate. Per nurse note (09/10), SW spoke with pts and he stated pt is independent, makes her own food, eats on her own and they take care of one another. Recommending diet Rx modification, add Cardiac d/t BMI >30- completed. Visited pt in room, pt stated she does the cooking at home, but doesnt follow any diet and just cooks what she wants. Pt stated she does not try to eat a lot of healthy foods but would accept take home education materials to read once out, will place in d/c packet. Anthropometrics HT: 55 WT: 215 LB (97.7 kg) ABW: 147.5 (67.0 kg) BMI: 35.77 (Obese Class II) GI/ Skin Integrity GI: WNL, Soft, Non-tender BM: 09/10 x1 I/O: 970/Not Noted Skin: Dryness, pink lower back Mart: 18 Diet Order: Mechanical Soft, Cardiac Estimated Energy Needs: (Obese , ABW) 3150-3215 kcals (20-25 kcals/ kg) 55-65g Pro (0.8-1.0 g/kg) 4709-7129 ml (20-25 ml/kg) Current Diet Order/ Nutrition Support Mechanical Soft, Cardiac Patient / S.O Can Pertinent Medications Plavix, [place]-3, Synthroid, Protonix, Miralax, Senna Pertinent Labs 09/08: Glucose 114, Alk Phos 140 Nutritional Hx/Data Height 1.65 m Height (Calculated Centimeters) 165.1 Current Weight (lbs) 97.522 kg Weight (Calculated Kilograms) 97.5 Weight (Calculated Grams) 46252.4 [place] Body Weight 125 LB (56.82 kg) % [place] Body Weight 172 Body Mass Index (BMI) 35.7 Weight Status Obese GI Symptoms Last BM 09/10 x1 Usual diet at home Regular, does not follow diet Skin Integrity/Comment: Skin: Dryness, pink lower back Mart: 18 Current %PO Fair (50-74%) Estimated Nutritional Goals BEE in Kcals: Adj wt of IBW Calories/Kcals/Kg 20-25 Kcals Calculated 6168-1127 Protein: Adj wt of IBW Protein g/k.8-1.0 Protein Calculated 55-65 Fluid: ml 0271-6841 ml (20-25 ml/kg) Nutritional Problem 2. Problem Problem Food and Nutrition related knowledge deficit Etiology r/t obesity Signs/Symptoms: aeb pt report of cooking what she likes, not following any healthy diet. 1. Problem Problem Obese (Class II) Etiology related to chronic energy overconsumption Signs/Symptoms: as evidenced by BMI >30 (35.77 ). Malnutrition Related to Morbid Obesity Malnutrition related to morbid obesity No Intervention/Recommendation Comments 1.Recommend adding Cardiac to current diet Rx-completed. 2.Basic healthy eating nutrition education in person and take home materials- completed. Expected Outcomes/Goals Expected Outcomes/Goals 1.PO intake to continue to meet >75% of estimated nutritional needs. 2.Monitor PO intake, wt, nutrition related labs, and skin integrity to trend WNL. 3.Gradual wt loss (0.5-1 LB per week) trading towards IBW preferred. 4.F/U as low risk in 7-10 days , -09/21.
--- NOTE | 2019-09-14 20:46 | Progress Notes ---
DATE: 09/14/2019 SUBJECTIVE: Case was discussed with staff of the patient, reviewed records. Covering for Dr. Harris. This is a 69-year-old female who was admitted on 09/08/2019. The patient was referred from [facility] because of persistent catatonia, brought her to the [facility] for evaluation. The patient was released after she was inpatient psych hospital for 17 days and after staying home, the patient's brought her back to [facility]. The patient was started on Seroquel, Depakote XR. The patient was started on Zoloft, Aricept, and she was discharged. The patient has been refusing to take medication and the patient also has not been eating or drinking much. Unable to talk or verbalize her needs, though the staff reports she is starting to feel better. The patient is with a history of bipolar disorder. The patient is more interactive is able to tell her name and that unable to tell the date. She is not sure why she is in the hospital, unable to make safe plan for self-care. She is no longer in a wheelchair. There is ongoing behavioral disturbances with some improvement. The patient so far has been compliant with the medication with no side effects, no sedation, no nausea, no extrapyramidal symptoms, and she is on Abilify 5 mg a day and Remeron 750 mg at bedtime and also Seroquel, also on pantoprazole, levothyroxine, Levaquin, Plavix, atorvastatin and aspirin and no side effects with the medication, no sedation, no nausea, no extrapyramidal symptoms. We will continue outpatient group therapy, milieu therapy, adjust medication as needed. JOB# [id number]
[2019-09-15] MEDS: Pantoprazole 40 mg/Packet PO SCH ×2 (06:44→15:33)
[2019-09-15] MEDS: Fish Oil 1,000 MG SGL PO SCH (08:36)
[2019-09-15] MEDS: Levothyroxine 0.05 Mg Tab PO SCH (08:36)
[2019-09-15] MEDS: POLYETHYLENE GLYCOL 3350 17 GM PACK PO SCH (08:36)
[2019-09-15] MEDS: Aspirin 81mg Chewable Tab PO SCH (08:37)
[2019-09-15] MEDS: Atorvastatin Calcium 10 MG TAB PO SCH (08:37)
--- NOTE | 2019-09-15 22:56 | Psych Progress Note ---
Psych Progress Note - Intro Date of Progress Note: 09/15/19 - Assessment Assessment: Patient interviewed, case discussed with staff, chart and records reviewed. The patient has been isolating withdrawn depressed appearing. Limited cooperation with the interview. No side effects noted to the medicines. - Vitals, I&O Vitals: Vital Signs - 24 hr 09/15/19 09/15/19 09/15/19 06:59 07:50 08:37 Temp 98 F HR 64 64 RR 18 18 BP 136/56 135/60 O2 Sat % 92 09/15/19 20:24 Temp 97.8 F HR 56 RR 20 BP 134/63 O2 Sat % 96 - Objective Psych General Appearance: Report: No acute distress Psych Behavior: Report: Uncooperative Psych Mood: Report: Depressed Psych Affect: Report: Flat Psych Cognition: Report: Confused Psych Insight: Report: Impaired Psych Judgement: Report: Impaired - Plan Plan: Continue meds, continue current treatment plan and will monitor behaviors. - Review of Relevant Data Review of Relevant Data: I have reviewed the following items and time dotty (where applicable) has been applied. - Medications Current Medications: Current Medications Acetaminophen (Tylenol) 650 mg PO Q4H PRN PRN Reason: Pain (Mild 1-3) Stop: 11/08/19 01:07 Last Admin: 09/12/19 10:06 Dose: 650 mg Aripiprazole (Abilify) 5 mg PO DAILY [facility]; Protocol Stop: 11/13/19 08:59 Aspirin (Aspirin Chewable) 81 mg PO QDPC [facility] Stop: 11/08/19 08:59 Last Admin: 09/15/19 08:37 Dose: 81 mg Atorvastatin Calcium (Lipitor) 10 mg PO DAILY [facility]; Protocol Stop: 11/08/19 08:59 Last Admin: 09/15/19 08:37 Dose: 10 mg Clopidogrel Bisulfate (Plavix) 75 mg PO DAILY [facility] Stop: 11/08/19 08:59 Last Admin: 09/15/19 08:37 Dose: 75 mg Fish Oil ([place] 3) 1,000 mg PO DAILY [facility] Stop: 11/08/19 08:59 Last Admin: 09/15/19 08:36 Dose: 1,000 mg Levothyroxine Sodium (Synthroid) 0.05 mg PO DAILY [facility] Stop: 11/08/19 08:59 Last Admin: 09/15/19 08:36 Dose: 0.05 mg Lorazepam (Ativan) 0.5 mg PO Q4HR PRN; Protocol PRN Reason: Anxiety Stop: 10/09/19 01:07 Losartan Potassium (Cozaar) 25 mg PO DAILY [facility] Stop: 11/14/19 08:59 Last Admin: 09/15/19 08:37 Dose: 25 mg Mirtazapine (Remeron) 15 mg PO HS [facility]; Protocol Stop: 11/12/19 20:59 Last Admin: 09/15/19 21:12 Dose: 15 mg Pantoprazole Sodium (Protonix) 20 mg PO BIDAC [facility] Stop: 11/08/19 07:29 Last Admin: 09/15/19 15:33 Dose: 20 mg Polyethylene Glycol (Miralax) 17 gm PO DAILY [facility] Stop: 11/08/19 08:59 Last Admin: 09/15/19 08:36 Dose: 17 gm Senna (Senna) 17.2 mg PO HS [facility] Stop: 11/08/19 20:59 Last Admin: 09/15/19 21:12 Dose: 17.2 mg Zolpidem Tartrate (Ambien) 5 mg PO HSMR1 PRN PRN Reason: Insomnia Stop: 11/08/19 01:07 Last Admin: 09/15/19 21:12 Dose: 5 mg
[2019-09-16] MEDS: Pantoprazole 40 mg/Packet PO SCH ×2 (06:51→15:40)
[2019-09-16] MEDS: POLYETHYLENE GLYCOL 3350 17 GM PACK PO SCH (09:07)
[2019-09-16] MEDS: Aspirin 81mg Chewable Tab PO SCH (09:08)
[2019-09-16] MEDS: Atorvastatin Calcium 10 MG TAB PO SCH (09:08)
[2019-09-16] MEDS: Levothyroxine 0.05 Mg Tab PO SCH (09:08)
[2019-09-16] MEDS: Fish Oil 1,000 MG SGL PO SCH (09:08)
--- NOTE | 2019-09-16 15:27 | General Progress Note ---
Subjective - Review of Systems Service Date: 09/16/19 Subjective: * Per nursing staff BP still elevated * Patient is on Cozaar 25 mg daily Objective - Results Result Diagrams: 09/09/19 09:40 09/09/19 09:40 Recent Labs: Laboratory Last Values WBC 8.3 K/uL (4.8-10.8) 09/09/19 09:40 RBC 4.59 MIL/uL (4.2-6.2) 09/09/19 09:40 Hgb 13.6 gm/dL (12-16) 09/09/19 09:40 Hct 41.2 % (41.0-60) 09/09/19 09:40 MCV 89.9 fl (81-100) 09/09/19 09:40 MCH 29.5 pg (27.0-31.0) 09/09/19 09:40 MCHC Differential 32.9 pg (28.0-36.0) 09/09/19 09:40 RDW 13.8 % (11.5-20.0) 09/09/19 09:40 Plt Count 265 Th/cmm (150-400) 09/09/19 09:40 MPV 9.0 fl 09/09/19 09:40 Neutrophils % 63.0 % (40.0-80.0) 09/09/19 09:40 Lymphocytes % 26.3 % (20.0-50.0) 09/09/19 09:40 Monocytes % 7.3 % (2.0-10.0) 09/09/19 09:40 Eosinophils % 3.0 % (0.0-5.0) 09/09/19 09:40 Basophils % 0.4 % (0.0-2.0) 09/09/19 09:40 Sodium 137 mmol/L (136-145) 09/09/19 09:40 Potassium 3.9 mmol/L (3.5-5.1) 09/09/19 09:40 Chloride 102 mmol/L (98-107) 09/09/19 09:40 Carbon Dioxide 25 mmol/L (23-29) 09/09/19 09:40 Anion Gap 14 (5-15) 09/09/19 09:40 BUN 8 mg/dL (8-21) 09/09/19 09:40 Creatinine 0.95 mg/dL (0.70-1.30) 09/09/19 09:40 Glucose 114 mg/dL (70-99) H 09/09/19 09:40 Calcium 9.5 mg/dL (8.4-10.2) 09/09/19 09:40 Total Bilirubin 0.7 mg/dL (0.0-1.0) 09/09/19 09:40 AST 25 U/L (10-37) 09/09/19 09:40 ALT 36 U/L (12-78) 09/09/19 09:40 Alkaline Phosphatase 140 U/L (46-116) H 09/09/19 09:40 Total Protein 7.6 g/dL (6.4-8.3) 09/09/19 09:40 Albumin 3.4 g/dL (3.4-5.0) 09/09/19 09:40 - Physical Exam Vitals and I&O: Vital Signs Temp 97.3 F 09/16/19 06:03 Pulse 54 09/16/19 09:08 Resp 18 09/16/19 07:25 BP 144/75 09/16/19 09:08 Pulse Ox 95 09/16/19 06:03 Intake & Output 09/15/19 09/16/19 09/16/19 18:59 06:59 18:59 Intake Total 950 240 Balance 950 240 Intake: Oral 950 240 Other: # Voids 3 # Bowel Movements 0 0 Active Medications: Current Medications Acetaminophen (Tylenol) 650 mg PO Q4H PRN PRN Reason: Pain (Mild 1-3) Stop: 11/08/19 01:07 Last Admin: 09/15/19 23:57 Dose: 650 mg Aripiprazole (Abilify) 5 mg PO DAILY [facility]; Protocol Stop: 11/13/19 08:59 Last Admin: 09/16/19 09:08 Dose: 5 mg Aspirin (Aspirin Chewable) 81 mg PO QDPC [facility] Stop: 11/08/19 08:59 Last Admin: 09/16/19 09:08 Dose: 81 mg Atorvastatin Calcium (Lipitor) 10 mg PO DAILY [facility]; Protocol Stop: 11/08/19 08:59 Last Admin: 09/16/19 09:08 Dose: 10 mg Clopidogrel Bisulfate (Plavix) 75 mg PO DAILY [facility] Stop: 11/08/19 08:59 Last Admin: 06/21/20 09:08 Dose: 75 mg Fish Oil ([place] 3) 1,000 mg PO DAILY [facility] Stop: 11/08/19 08:59 Last Admin: 09/16/19 09:08 Dose: 1,000 mg Levothyroxine Sodium (Synthroid) 0.05 mg PO DAILY [facility] Stop: 11/08/19 08:59 Last Admin: 09/16/19 09:08 Dose: 0.05 mg Lorazepam (Ativan) 0.5 mg PO Q4HR PRN; Protocol PRN Reason: Anxiety Stop: 10/09/19 01:07 Losartan Potassium (Cozaar) 50 mg PO DAILY [facility] Stop: 11/16/19 08:59 Mirtazapine (Remeron) 15 mg PO HS [facility]; Protocol Stop: 11/12/19 20:59 Last Admin: 09/15/19 21:12 Dose: 15 mg Pantoprazole Sodium (Protonix) 20 mg PO BIDAC [facility] Stop: 11/08/19 07:29 Last Admin: 09/16/19 06:51 Dose: 20 mg Polyethylene Glycol (Miralax) 17 gm PO DAILY [facility] Stop: 11/08/19 08:59 Last Admin: 09/16/19 09:07 Dose: 17 gm Senna (Senna) 17.2 mg PO HS [facility] Stop: 11/08/19 20:59 Last Admin: 09/15/19 21:12 Dose: 17.2 mg Zolpidem Tartrate (Ambien) 5 mg PO HSMR1 PRN PRN Reason: Insomnia Stop: 11/08/19 01:07 Last Admin: 09/15/19 21:12 Dose: 5 mg General: No acute distress Cardiovascular: Regular rate, Normal S1, Normal S2 Lungs: Clear to auscultation Abdomen: Bowel sounds Assessment/Plan - Assessment Assessment: * Catatonia * H/O UTI * Bipolar Disorder (Type I) * Impaired functional mobility, balance and gait * CVD * Hypothyroidism * Hyperlipidemia * Hypertension * Fibromyalgia * Insomnia * Neuropathy * s/p ELISSA * s/p Cholecystectomy - Plan Plan: * Continue current management * Increase Cozaar to 50 mg daily * Obtain labs in am Nutritional Asmnt/Malnutr-PDOC - Dietary Evaluation Malnutrition Findings (Please click <Entered> for more info): Nutritional Asmnt/Malnutrition Start: 09/12/19 16: 23 Text: Status: Complete Freq: Protocol: Document 09/12/19 16:23 KAVON (Rec: 09/12/19 16:28 KAVON [id number]) Nutritional Asmnt/Malnutrition Patient General Information Nutritional Screening Moderate Risk Diagnosis catatonia Pertinent Medical Hx/Surgical Hx CAD, HTN, Hyperlipidemia, CVA, Peripheral neuropathy, Bipolar, Catatonia insomnia, Fibromyalgia, UTI, Hypothyroidism, Cholecystectomy, Total abdominal hysterectomy Subjective Information Pt is a 53-year-old male admitted on 09/07 d/t catatonia . Pt is eating an estimated 53 % x3days of meals Per Meal/ Nutrition Activity Record. Dietary is currently providing an estimated 2000 kcals and 102 gm Pro, per Pt PO intake this is providing an estimated 1060 kcals and 54gm Pro to meet 79% kcal and 98% Pro needs- adequate. Per nurse note (09/10), SW spoke with pts and he stated pt is independent, makes her own food, eats on her own and they take care of one another. Recommending diet Rx modification, add Cardiac d/t BMI >30- completed. Visited pt in room, pt stated she does the cooking at home, but doesnt follow any diet and just cooks what she wants. Pt stated she does not try to eat a lot of healthy foods but would accept take home education materials to read once out, will place in d/c packet. Anthropometrics HT: 55 WT: 215 LB (97.7 kg) ABW: 147.5 (67.0 kg) BMI: 35.77 (Obese Class II) GI/ Skin Integrity GI: WNL, Soft, Non-tender BM: 09/10 x1 I/O: 970/Not Noted Skin: Dryness, pink lower back Mart: 18 Diet Order: Mechanical Soft, Cardiac Estimated Energy Needs: (Obese , ABW) 2804-5999 kcals (20-25 kcals/ kg) 55-65g Pro (0.8-1.0 g/kg) 3908-9244 ml (20-25 ml/kg) Current Diet Order/ Nutrition Support Mechanical Soft, Cardiac Patient / S.O Can Pertinent Medications Plavix, [place]-3, Synthroid, Protonix, Miralax, Senna Pertinent Labs 09/08: Glucose 114, Alk Phos 140 Nutritional Hx/Data Height 1.65 m Height (Calculated Centimeters) 165.1 Current Weight (lbs) 97.522 kg Weight (Calculated Kilograms) 97.5 Weight (Calculated Grams) 86155.4 [place] Body Weight 125 LB (56.82 kg) % [place] Body Weight 172 Body Mass Index (BMI) 35.7 Weight Status Obese GI Symptoms Last BM 09/10 x1 Usual diet at home Regular, does not follow diet Skin Integrity/Comment: Skin: Dryness, pink lower back Mart: 18 Current %PO Fair (50-74%) Estimated Nutritional Goals BEE in Kcals: Adj wt of IBW Calories/Kcals/Kg 20-25 Kcals Calculated 0144-9806 Protein: Adj wt of IBW Protein g/k.8-1.0 Protein Calculated 55-65 Fluid: ml 5591-3403 ml (20-25 ml/kg) Nutritional Problem 2. Problem Problem Food and Nutrition related knowledge deficit Etiology r/t obesity Signs/Symptoms: aeb pt report of cooking what she likes, not following any healthy diet. 1. Problem Problem Obese (Class II) Etiology related to chronic energy overconsumption Signs/Symptoms: as evidenced by BMI >30 (35.77 ). Malnutrition Related to Morbid Obesity Malnutrition related to morbid obesity No Intervention/Recommendation Comments 1.Recommend adding Cardiac to current diet Rx-completed. 2.Basic healthy eating nutrition education in person and take home materials- completed. Expected Outcomes/Goals Expected Outcomes/Goals 1.PO intake to continue to meet >75% of estimated nutritional needs. 2.Monitor PO intake, wt, nutrition related labs, and skin integrity to trend WNL. 3.Gradual wt loss (0.5-1 LB per week) trading towards IBW preferred. 4.F/U as low risk in 7-10 days , -09/21.
--- NOTE | 2019-09-16 23:46 | Psych Progress Note ---
Psych Progress Note - Intro Date of Progress Note: 09/16/19 - Assessment Assessment: Patient interviewed, case discussed with staff, chart and records reviewed. The patient has been isolating withdrawn depressed appearing. slow to respond, mumbling, Limited cooperation with the interview. No side effects noted to the medicines. - Vitals, I&O Vitals: Vital Signs - 24 hr 09/16/19 09/16/19 09/16/19 06:03 07:25 09:08 Temp 97.3 F HR 54 54 RR 18 18 BP 114/75 144/75 O2 Sat % 95 09/16/19 20:12 Temp 97.9 F HR 67 RR 20 BP 136/72 O2 Sat % 97 - Objective Psych General Appearance: Report: No acute distress Psych Behavior: Report: Uncooperative Psych Mood: Report: Depressed Psych Affect: Report: Flat Psych Cognition: Report: Confused Psych Insight: Report: Impaired Psych Judgement: Report: Impaired - Plan Plan: Continue meds, continue current treatment plan and will monitor behaviors. - Review of Relevant Data Review of Relevant Data: I have reviewed the following items and time dotty (where applicable) has been applied. - Medications Current Medications: Current Medications Acetaminophen (Tylenol) 650 mg PO Q4H PRN PRN Reason: Pain (Mild 1-3) Stop: 11/08/19 01:07 Last Admin: 09/16/19 21:04 Dose: 650 mg Aripiprazole (Abilify) 5 mg PO DAILY [facility]; Protocol Stop: 11/13/19 08:59 Last Admin: 09/16/19 09:08 Dose: 5 mg Aspirin (Aspirin Chewable) 81 mg PO QDPC [facility] Stop: 11/08/19 08:59 Last Admin: 09/16/19 09:08 Dose: 81 mg Atorvastatin Calcium (Lipitor) 10 mg PO DAILY [facility]; Protocol Stop: 11/08/19 08:59 Last Admin: 09/16/19 09:08 Dose: 10 mg Clopidogrel Bisulfate (Plavix) 75 mg PO DAILY [facility] Stop: 11/08/19 08:59 Last Admin: 09/16/19 09:08 Dose: 75 mg Fish Oil ([place] 3) 1,000 mg PO DAILY [facility] Stop: 11/08/19 08:59 Last Admin: 09/16/19 09:08 Dose: 1,000 mg Levothyroxine Sodium (Synthroid) 0.05 mg PO DAILY [facility] Stop: 11/08/19 08:59 Last Admin: 09/16/19 09:08 Dose: 0.05 mg Lorazepam (Ativan) 0.5 mg PO Q4HR PRN; Protocol PRN Reason: Anxiety Stop: 10/09/19 01:07 Losartan Potassium (Cozaar) 50 mg PO DAILY [facility] Stop: 11/16/19 08:59 Mirtazapine (Remeron) 15 mg PO HS [facility]; Protocol Stop: 11/12/19 20:59 Last Admin: 09/16/19 20:18 Dose: 15 mg Pantoprazole Sodium (Protonix) 20 mg PO BIDAC [facility] Stop: 11/08/19 07:29 Last Admin: 09/16/19 15:40 Dose: 20 mg Polyethylene Glycol (Miralax) 17 gm PO DAILY [facility] Stop: 11/08/19 08:59 Last Admin: 09/16/19 09:07 Dose: 17 gm Senna (Senna) 17.2 mg PO HS [facility] Stop: 11/08/19 20:59 Last Admin: 09/16/19 20:18 Dose: 17.2 mg Zolpidem Tartrate (Ambien) 5 mg PO HSMR1 PRN PRN Reason: Insomnia Stop: 11/08/19 01:07 Last Admin: 09/16/19 21:04 Dose: 5 mg
[2019-09-17] MEDS: Pantoprazole 40 mg/Packet PO SCH ×2 (06:30→15:31)
[2019-09-17] MEDS: Levothyroxine 0.05 Mg Tab PO SCH (09:18)
[2019-09-17] MEDS: POLYETHYLENE GLYCOL 3350 17 GM PACK PO SCH (09:18)
[2019-09-17] MEDS: Aspirin 81mg Chewable Tab PO SCH (09:19)
[2019-09-17] MEDS: Fish Oil 1,000 MG SGL PO SCH (09:19)
[2019-09-17] MEDS: Atorvastatin Calcium 10 MG TAB PO SCH (09:19)
[2019-09-17 12:05] LABS: % NEUTROPHILS 47.3 % (40.0-80.0); EOSINOPHILS % (AUTO) 3.5 % (0.0-5.0); HEMATOCRIT 40.9 % (41.0-60); HEMOGLOBIN 13.4 gm/dL (12-16); LYMPHOCYTES # (AUTO) 2.7 Th/cmm (1.5-3.0); LYMPHOCYTES % (AUTO) 41.9 % (20.0-50.0); MEAN CORPUSCULAR HEMOGLOBIN 29.8 pg (27.0-31.0); MEAN CORPUSCULAR HGB CONC 32.8 pg (28.0-36.0); MEAN CORPUSCULAR VOLUME 90.7 fl (81-100); MONOCYTES % (AUTO) 6.3 % (2.0-10.0); PLATELET COUNT 322 Th/cmm (150-400); RED CELL DISTRIBUTION WIDTH 14.2 % (11.5-20.0)
[2019-09-17 12:06] LABS: BASOPHILS # (AUTO) 0.1 Th/cumm (0-0.2); EOSINOPHILS # (AUTO) 0.2 Th/cmm (0.1-0.4); MONOCYTES # (AUTO) 0.4 Th/cmm (0.3-1.0)
[2019-09-17 12:15] LABS: WHITE BLOOD COUNT 6.4 K/uL (4.8-10.8)
[2019-09-17 12:16] LABS: RED BLOOD COUNT 4.51 MIL/uL (4.2-6.2)
[2019-09-17 12:46] LABS: CALCIUM SERUM 8.9 mg/dL (8.4-10.2); CREATININE - SERUM 0.91 mg/dL (0.70-1.30); POTASSIUM SERUM 3.5 mmol/L (3.5-5.1)
--- NOTE | 2019-09-17 16:00 | Internal Medicine Prog Note ---
Internal Medicine Subjective - Subjective Service Date: 09/17/19 Patient seen and examined:: without staff Patient is:: awake Per staff patient has:: no adverse event, no episodes of fall Internal Medicine Objective - Results Result Diagrams: 09/17/19 09:15 09/17/19 09:15 Recent Labs: Laboratory Last Values WBC 6.4 K/uL (4.8-10.8) 09/17/19 09:15 RBC 4.51 MIL/uL (4.2-6.2) 09/17/19 09:15 Hgb 13.4 gm/dL (12-16) 09/17/19 09:15 Hct 40.9 % (41.0-60) L 09/17/19 09:15 MCV 90.7 fl (81-100) 09/17/19 09:15 MCH 29.8 pg (27.0-31.0) 09/17/19 09:15 MCHC Differential 32.8 pg (28.0-36.0) 09/17/19 09:15 RDW 14.2 % (11.5-20.0) 09/17/19 09:15 Plt Count 322 Th/cmm (150-400) 09/17/19 09:15 MPV 8.5 fl 09/17/19 09:15 Neutrophils % 47.3 % (40.0-80.0) 09/17/19 09:15 Lymphocytes % 41.9 % (20.0-50.0) 09/17/19 09:15 Monocytes % 6.3 % (2.0-10.0) 09/17/19 09:15 Eosinophils % 3.5 % (0.0-5.0) 09/17/19 09:15 Basophils % 1.0 % (0.0-2.0) 09/17/19 09:15 Sodium 139 mmol/L (136-145) 09/17/19 09:15 Potassium 3.5 mmol/L (3.5-5.1) 09/17/19 09:15 Chloride 103 mmol/L (98-107) 09/17/19 09:15 Carbon Dioxide 27 mmol/L (23-29) 09/17/19 09:15 Anion Gap 13 (5-15) 09/17/19 09:15 BUN 8 mg/dL (8-21) 09/17/19 09:15 Creatinine 0.91 mg/dL (0.70-1.30) 09/17/19 09:15 Glucose 115 mg/dL (70-99) H 09/17/19 09:15 Calcium 8.9 mg/dL (8.4-10.2) 09/17/19 09:15 Total Bilirubin 0.7 mg/dL (0.0-1.0) 09/09/19 09:40 AST 25 U/L (10-37) 09/09/19 09:40 ALT 36 U/L (12-78) 09/09/19 09:40 Alkaline Phosphatase 140 U/L (46-116) H 09/09/19 09:40 Total Protein 7.6 g/dL (6.4-8.3) 09/09/19 09:40 Albumin 3.4 g/dL (3.4-5.0) 09/09/19 09:40 - Physical Exam Vitals and I&O: Vital Signs Temp 97.6 F 09/17/19 06:18 Pulse 80 09/17/19 09:18 Resp 18 09/17/19 07:26 BP 156/70 09/17/19 09:18 Pulse Ox 93 09/17/19 06:18 Intake & Output 09/16/19 09/17/19 09/17/19 18:59 06:59 18:59 Intake Total 900 240 Balance 900 240 Intake: Oral 900 240 Other: # Voids 3 1 # Bowel Movements 1 0 Active Medications: Current Medications Acetaminophen (Tylenol) 650 mg PO Q4H PRN PRN Reason: Pain (Mild 1-3) Stop: 11/08/19 01:07 Last Admin: 09/16/19 21:04 Dose: 650 mg Aripiprazole (Abilify) 5 mg PO DAILY [facility]; Protocol Stop: 11/13/19 08:59 Last Admin: 09/17/19 09:18 Dose: 5 mg Aspirin (Aspirin Chewable) 81 mg PO QDPC [facility] Stop: 11/08/19 08:59 Last Admin: 09/17/19 09:19 Dose: 81 mg Atorvastatin Calcium (Lipitor) 10 mg PO DAILY [facility]; Protocol Stop: 11/08/19 08:59 Last Admin: 09/17/19 09:19 Dose: 10 mg Clopidogrel Bisulfate (Plavix) 75 mg PO DAILY [facility] Stop: 11/08/19 08:59 Last Admin: 09/17/19 09:18 Dose: 75 mg Fish Oil ([place] 3) 1,000 mg PO DAILY [facility] Stop: 11/08/19 08:59 Last Admin: 09/17/19 09:19 Dose: 1,000 mg Levothyroxine Sodium (Synthroid) 0.05 mg PO DAILY [facility] Stop: 11/08/19 08:59 Last Admin: 09/17/19 09:18 Dose: 0.05 mg Lorazepam (Ativan) 0.5 mg PO Q4HR PRN; Protocol PRN Reason: Anxiety Stop: 10/09/19 01:07 Losartan Potassium (Cozaar) 50 mg PO DAILY [facility] Stop: 11/16/19 08:59 Last Admin: 09/17/19 09:18 Dose: 50 mg Mirtazapine (Remeron) 15 mg PO HS [facility]; Protocol Stop: 11/12/19 20:59 Last Admin: 09/16/19 20:18 Dose: 15 mg Pantoprazole Sodium (Protonix) 20 mg PO BIDAC [facility] Stop: 11/08/19 07:29 Last Admin: 09/17/19 15:31 Dose: 20 mg Polyethylene Glycol (Miralax) 17 gm PO DAILY [facility] Stop: 11/08/19 08:59 Last Admin: 09/17/19 09:18 Dose: 17 gm Senna (Senna) 17.2 mg PO HS [facility] Stop: 11/08/19 20:59 Last Admin: 09/16/19 20:18 Dose: 17.2 mg Zolpidem Tartrate (Ambien) 5 mg PO HSMR1 PRN PRN Reason: Insomnia Stop: 11/08/19 01:07 Last Admin: 09/16/19 21:04 Dose: 5 mg General: weak HEENT: NC/AT, PERRLA Neck: Supple Lungs: CTAB Cardiovascular: RRR, Normal S1, Normal S2 Abdomen: soft Extremities: clear Internal Medicine Assmt/Plan - Assessment Assessment: 1. HTN 2. Hx of CVA 3. Hypothyroidism - Plan Plan: continue synthroid continue same meds reviewed medical records from outside hospital d/w r.n. Nutritional Asmnt/Malnutr-PDOC - Dietary Evaluation Malnutrition Findings (Please click <Entered> for more info): Nutritional Asmnt/Malnutrition Start: 09/12/19 16: 23 Text: Status: Complete Freq: Protocol: Document 09/12/19 16:23 KAVON (Rec: 09/12/19 16:28 KAVON [id number]) Nutritional Asmnt/Malnutrition Patient General Information Nutritional Screening Moderate Risk Diagnosis catatonia Pertinent Medical Hx/Surgical Hx CAD, HTN, Hyperlipidemia, CVA, Peripheral neuropathy, Bipolar, Catatonia insomnia, Fibromyalgia, UTI, Hypothyroidism, Cholecystectomy, Total abdominal hysterectomy Subjective Information Pt is a 53-year-old male admitted on 09/07 d/t catatonia . Pt is eating an estimated 53 % x3days of meals Per Meal/ Nutrition Activity Record. Dietary is currently providing an estimated 2000 kcals and 102 gm Pro, per Pt PO intake this is providing an estimated 1060 kcals and 54gm Pro to meet 79% kcal and 98% Pro needs- adequate. Per nurse note (09/10), SW spoke with pts and he stated pt is independent, makes her own food, eats on her own and they take care of one another. Recommending diet Rx modification, add Cardiac d/t BMI >30- completed. Visited pt in room, pt stated she does the cooking at home, but doesnt follow any diet and just cooks what she wants. Pt stated she does not try to eat a lot of healthy foods but would accept take home education materials to read once out, will place in d/c packet. Anthropometrics HT: 55 WT: 215 LB (97.7 kg) ABW: 147.5 (67.0 kg) BMI: 35.77 (Obese Class II) GI/ Skin Integrity GI: WNL, Soft, Non-tender BM: 09/10 x1 I/O: 970/Not Noted Skin: Dryness, pink lower back Mart: 18 Diet Order: Mechanical Soft, Cardiac Estimated Energy Needs: (Obese , ABW) 4096-1616 kcals (20-25 kcals/ kg) 55-65g Pro (0.8-1.0 g/kg) 8884-4341 ml (20-25 ml/kg) Current Diet Order/ Nutrition Support Mechanical Soft, Cardiac Patient / S.O Can Pertinent Medications Plavix, [place]-3, Synthroid, Protonix, Miralax, Senna Pertinent Labs 09/08: Glucose 114, Alk Phos 140 Nutritional Hx/Data Height 1.65 m Height (Calculated Centimeters) 165.1 Current Weight (lbs) 97.522 kg Weight (Calculated Kilograms) 97.5 Weight (Calculated Grams) 43536.4 [place] Body Weight 125 LB (56.82 kg) % [place] Body Weight 172 Body Mass Index (BMI) 35.7 Weight Status Obese GI Symptoms Last BM 09/10 x1 Usual diet at home Regular, does not follow diet Skin Integrity/Comment: Skin: Dryness, pink lower back Mart: 18 Current %PO Fair (50-74%) Estimated Nutritional Goals BEE in Kcals: Adj wt of IBW Calories/Kcals/Kg 20-25 Kcals Calculated 2395-6158 Protein: Adj wt of IBW Protein g/k.8-1.0 Protein Calculated 55-65 Fluid: ml 9956-4765 ml (20-25 ml/kg) Nutritional Problem 2. Problem Problem Food and Nutrition related knowledge deficit Etiology r/t obesity Signs/Symptoms: aeb pt report of cooking what she likes, not following any healthy diet. 1. Problem Problem Obese (Class II) Etiology related to chronic energy overconsumption Signs/Symptoms: as evidenced by BMI >30 (35.77 ). Malnutrition Related to Morbid Obesity Malnutrition related to morbid obesity No Intervention/Recommendation Comments 1.Recommend adding Cardiac to current diet Rx-completed. 2.Basic healthy eating nutrition education in person and take home materials- completed. Expected Outcomes/Goals Expected Outcomes/Goals 1.PO intake to continue to meet >75% of estimated nutritional needs. 2.Monitor PO intake, wt, nutrition related labs, and skin integrity to trend WNL. 3.Gradual wt loss (0.5-1 LB per week) trading towards IBW preferred. 4.F/U as low risk in 7-10 days , -09/21.
--- NOTE | 2019-09-17 21:38 | Progress Notes ---
DATE: 09/17/2019 Case was discussed with staff of the patient, reviewed records. The patient continues to be confused, isolating herself, depressed, mumbling to herself, uncooperative in general, flat affect, unable to make safe plan for self-care, and needing redirection with her ADLs. The patient also has been confused. No side effects with the medication, no sedation, no nausea, or no extrapyramidal symptoms. We will continue outpatient group therapy, milieu therapy, adjust medication as needed. JOB# [id number]
[2019-09-18] MEDS: Pantoprazole 40 mg/Packet PO SCH ×2 (06:32→17:11)
[2019-09-18] MEDS: POLYETHYLENE GLYCOL 3350 17 GM PACK PO SCH (08:44)
[2019-09-18] MEDS: Fish Oil 1,000 MG SGL PO SCH (08:44)
[2019-09-18] MEDS: Aspirin 81mg Chewable Tab PO SCH (08:45)
[2019-09-18] MEDS: Atorvastatin Calcium 10 MG TAB PO SCH (08:45)
[2019-09-18] MEDS: Levothyroxine 0.05 Mg Tab PO SCH (09:09)
--- NOTE | 2019-09-18 11:28 | Internal Medicine Prog Note ---
Internal Medicine Subjective - Subjective Service Date: 09/18/19 Patient seen and examined:: without staff Patient is:: awake Per staff patient has:: no adverse event, no episodes of fall Internal Medicine Objective - Results Result Diagrams: 09/17/19 09:15 09/17/19 09:15 Recent Labs: Laboratory Last Values WBC 6.4 K/uL (4.8-10.8) 09/17/19 09:15 RBC 4.51 MIL/uL (4.2-6.2) 09/17/19 09:15 Hgb 13.4 gm/dL (12-16) 09/17/19 09:15 Hct 40.9 % (41.0-60) L 09/17/19 09:15 MCV 90.7 fl (81-100) 09/17/19 09:15 MCH 29.8 pg (27.0-31.0) 09/17/19 09:15 MCHC Differential 32.8 pg (28.0-36.0) 09/17/19 09:15 RDW 14.2 % (11.5-20.0) 09/17/19 09:15 Plt Count 322 Th/cmm (150-400) 09/17/19 09:15 MPV 8.5 fl 09/17/19 09:15 Neutrophils % 47.3 % (40.0-80.0) 09/17/19 09:15 Lymphocytes % 41.9 % (20.0-50.0) 09/17/19 09:15 Monocytes % 6.3 % (2.0-10.0) 09/17/19 09:15 Eosinophils % 3.5 % (0.0-5.0) 09/17/19 09:15 Basophils % 1.0 % (0.0-2.0) 09/17/19 09:15 Sodium 139 mmol/L (136-145) 09/17/19 09:15 Potassium 3.5 mmol/L (3.5-5.1) 09/17/19 09:15 Chloride 103 mmol/L (98-107) 09/17/19 09:15 Carbon Dioxide 27 mmol/L (23-29) 09/17/19 09:15 Anion Gap 13 (5-15) 09/17/19 09:15 BUN 8 mg/dL (8-21) 09/17/19 09:15 Creatinine 0.91 mg/dL (0.70-1.30) 09/17/19 09:15 Glucose 115 mg/dL (70-99) H 09/17/19 09:15 Calcium 8.9 mg/dL (8.4-10.2) 09/17/19 09:15 Total Bilirubin 0.7 mg/dL (0.0-1.0) 09/09/19 09:40 AST 25 U/L (10-37) 09/09/19 09:40 ALT 36 U/L (12-78) 09/09/19 09:40 Alkaline Phosphatase 140 U/L (46-116) H 09/09/19 09:40 Total Protein 7.6 g/dL (6.4-8.3) 09/09/19 09:40 Albumin 3.4 g/dL (3.4-5.0) 09/09/19 09:40 - Physical Exam Vitals and I&O: Vital Signs Temp 97.4 F 09/18/19 05:29 Pulse 62 09/18/19 08:45 Resp 19 09/18/19 05:29 BP 149/73 09/18/19 08:45 Pulse Ox 94 09/18/19 05:29 Intake & Output 09/17/19 09/18/19 09/18/19 18:59 06:59 18:59 Intake Total 120 Balance 120 Intake: Oral 120 Other: # Voids 3 # Bowel Movements 0 Active Medications: Current Medications Acetaminophen (Tylenol) 650 mg PO Q4H PRN PRN Reason: Pain (Mild 1-3) Stop: 11/08/19 01:07 Last Admin: 09/16/19 21:04 Dose: 650 mg Aripiprazole (Abilify) 5 mg PO DAILY [facility]; Protocol Stop: 11/13/19 08:59 Last Admin: 09/18/19 08:44 Dose: 5 mg Aspirin (Aspirin Chewable) 81 mg PO QDPC [facility] Stop: 11/08/19 08:59 Last Admin: 09/18/19 08:45 Dose: 81 mg Atorvastatin Calcium (Lipitor) 10 mg PO DAILY [facility]; Protocol Stop: 11/08/19 08:59 Last Admin: 09/18/19 08:45 Dose: 10 mg Clopidogrel Bisulfate (Plavix) 75 mg PO DAILY [facility] Stop: 11/08/19 08:59 Last Admin: 09/18/19 08:45 Dose: 75 mg Fish Oil ([place] 3) 1,000 mg PO DAILY [facility] Stop: 11/08/19 08:59 Last Admin: 09/18/19 08:44 Dose: 1,000 mg Levothyroxine Sodium (Synthroid) 0.05 mg PO DAILY [facility] Stop: 11/08/19 08:59 Last Admin: 09/18/19 09:09 Dose: 0.05 mg Lorazepam (Ativan) 0.5 mg PO Q4HR PRN; Protocol PRN Reason: Anxiety Stop: 10/09/19 01:07 Losartan Potassium (Cozaar) 50 mg PO DAILY [facility] Stop: 11/16/19 08:59 Last Admin: 09/18/19 08:45 Dose: 50 mg Mirtazapine (Remeron) 15 mg PO HS [facility]; Protocol Stop: 11/12/19 20:59 Last Admin: 09/17/19 20:38 Dose: 15 mg Pantoprazole Sodium (Protonix) 20 mg PO BIDAC [facility] Stop: 11/08/19 07:29 Last Admin: 09/18/19 06:32 Dose: 20 mg Polyethylene Glycol (Miralax) 17 gm PO DAILY [facility] Stop: 11/08/19 08:59 Last Admin: 09/18/19 08:44 Dose: 17 gm Senna (Senna) 17.2 mg PO HS [facility] Stop: 11/08/19 20:59 Last Admin: 09/17/19 20:38 Dose: 17.2 mg Zolpidem Tartrate (Ambien) 5 mg PO HSMR1 PRN PRN Reason: Insomnia Stop: 11/08/19 01:07 Last Admin: 09/17/19 20:39 Dose: 5 mg General: weak HEENT: NC/AT, PERRLA Neck: Supple Lungs: CTAB Cardiovascular: RRR, Normal S1, Normal S2 Abdomen: soft Extremities: clear Internal Medicine Assmt/Plan - Assessment Assessment: 1. HTN 2. Hx of CVA 3. Hypothyroidism - Plan Plan: add norvasc 5 mg po daily continue synthroid continue same meds reviewed medical records d/w r.n. Nutritional Asmnt/Malnutr-PDOC - Dietary Evaluation Malnutrition Findings (Please click <Entered> for more info): Nutritional Asmnt/Malnutrition Start: 09/12/19 16: 23 Text: Status: Complete Freq: Protocol: Document 09/12/19 16:23 KAVON (Rec: 09/12/19 16:28 KAVON [id number]) Nutritional Asmnt/Malnutrition Patient General Information Nutritional Screening Moderate Risk Diagnosis catatonia Pertinent Medical Hx/Surgical Hx CAD, HTN, Hyperlipidemia, CVA, Peripheral neuropathy, Bipolar, Catatonia insomnia, Fibromyalgia, UTI, Hypothyroidism, Cholecystectomy, Total abdominal hysterectomy Subjective Information Pt is a 53-year-old male admitted on 09/07 d/t catatonia . Pt is eating an estimated 53 % x3days of meals Per Meal/ Nutrition Activity Record. Dietary is currently providing an estimated 2000 kcals and 102 gm Pro, per Pt PO intake this is providing an estimated 1060 kcals and 54gm Pro to meet 79% kcal and 98% Pro needs- adequate. Per nurse note (09/10), SW spoke with pts and he stated pt is independent, makes her own food, eats on her own and they take care of one another. Recommending diet Rx modification, add Cardiac d/t BMI >30- completed. Visited pt in room, pt stated she does the cooking at home, but doesnt follow any diet and just cooks what she wants. Pt stated she does not try to eat a lot of healthy foods but would accept take home education materials to read once out, will place in d/c packet. Anthropometrics HT: 55 WT: 215 LB (97.7 kg) ABW: 147.5 (67.0 kg) BMI: 35.77 (Obese Class II) GI/ Skin Integrity GI: WNL, Soft, Non-tender BM: 09/10 x1 I/O: 970/Not Noted Skin: Dryness, pink lower back Mart: 18 Diet Order: Mechanical Soft, Cardiac Estimated Energy Needs: (Obese , ABW) 5752-4034 kcals (20-25 kcals/ kg) 55-65g Pro (0.8-1.0 g/kg) 2315-9896 ml (20-25 ml/kg) Current Diet Order/ Nutrition Support Mechanical Soft, Cardiac Patient / S.O Can Pertinent Medications Plavix, [place]-3, Synthroid, Protonix, Miralax, Senna Pertinent Labs 09/08: Glucose 114, Alk Phos 140 Nutritional Hx/Data Height 1.65 m Height (Calculated Centimeters) 165.1 Current Weight (lbs) 97.522 kg Weight (Calculated Kilograms) 97.5 Weight (Calculated Grams) 85676.4 Morton Body Weight 125 LB (56.82 kg) % Morton Body Weight 172 Body Mass Index (BMI) 35.7 Weight Status Obese GI Symptoms Last BM 09/10 x1 Usual diet at home Regular, does not follow diet Skin Integrity/Comment: Skin: Dryness, pink lower back Mart: 18 Current %PO Fair (50-74%) Estimated Nutritional Goals BEE in Kcals: Adj wt of IBW Calories/Kcals/Kg 20-25 Kcals Calculated 3878-5588 Protein: Adj wt of IBW Protein g/k.8-1.0 Protein Calculated 55-65 Fluid: ml 2929-8082 ml (20-25 ml/kg) Nutritional Problem 2. Problem Problem Food and Nutrition related knowledge deficit Etiology r/t obesity Signs/Symptoms: aeb pt report of cooking what she likes, not following any healthy diet. 1. Problem Problem Obese (Class II) Etiology related to chronic energy overconsumption Signs/Symptoms: as evidenced by BMI >30 (35.77 ). Malnutrition Related to Morbid Obesity Malnutrition related to morbid obesity No Intervention/Recommendation Comments 1.Recommend adding Cardiac to current diet Rx-completed. 2.Basic healthy eating nutrition education in person and take home materials- completed. Expected Outcomes/Goals Expected Outcomes/Goals 1.PO intake to continue to meet >75% of estimated nutritional needs. 2.Monitor PO intake, wt, nutrition related labs, and skin integrity to trend WNL. 3.Gradual wt loss (0.5-1 LB per week) trading towards IBW preferred. 4.F/U as low risk in 7-10 days , -09/21.
--- NOTE | 2019-09-18 16:45 | Progress Notes ---
DATE: 09/18/2019 SUBJECTIVE: The patient better oriented today. AO to name, place, situation. She is not quite sure about the year, the month. I spoke with the last week. He noted the patient was doing a lot better, approaching her baseline, happy with the care. The patient is sleeping well, eating well. She is able to verbalize some of her basic needs, stating she wants to go home, the really wants her home. The patient is expressing that she is feeling better to go home. Staff noting improvement in regards to her mentation, orientation, still withdrawn, isolative, no longer mumbling to self, no evidence of psychosis, more goal directed. Medications were reviewed. Labs reviewed. Vitals were reviewed, blood pressure 145/71, pulse ranges from 55-62. ASSESSMENT: A 69-year-old female, seems to be improving. PLAN: We will err on the side of caution, monitor for a further 24 hours. I spoke with the staff and the patient DICTATION ENDS HERE JOB# [id number]
[2019-09-19] MEDS: Pantoprazole 40 mg/Packet PO SCH (06:39)
[2019-09-19] MEDS ORDERED: Haloperidol Lactate 5 mg/mL 1mL Vial IM ONE (08:19)
[2019-09-19] MEDS: Aspirin 81mg Chewable Tab PO SCH (09:15)
[2019-09-19] MEDS: Levothyroxine 0.05 Mg Tab PO SCH (09:16)
[2019-09-19] MEDS: Atorvastatin Calcium 10 MG TAB PO SCH (09:16)
[2019-09-19] MEDS: Fish Oil 1,000 MG SGL PO SCH (09:16)
[2019-09-19] MEDS: POLYETHYLENE GLYCOL 3350 17 GM PACK PO SCH (09:17)
--- NOTE | 2019-09-20 00:11 | Discharge Summary ---
DATE OF DISCHARGE: 09/19/2019 HISTORY OF PRESENT ILLNESS: A 69-year-old female transferred to the hospital from [facility], persistent catatonia. brought her to the hospital while she was staring blankly and not really eating much, refusing medications. PAST PSYCHIATRIC HISTORY: Noted. ALLERGIES: Noted. PAST MEDICAL HISTORY: Noted. SOCIAL HISTORY: Noted. , lives with , good support. DIAGNOSES: Bipolar, depressed, severe catatonia. MEDICAL: Please see full H and P. HOSPITAL COURSE: After initial assessment, the patient was placed on medications, Remeron. I spoke with her , noting symptoms were just mostly over 4 years. I also started her on Abilify given concerns that the noted one episode of flavia in the past. Over the course of treatment, mood improved, affect improved, better orientation, more engaged, eating better, sleeping well, walking around, speaking more. On 09/19/2019, she was robustly improved. No SI, no HI, no overt psychotic symptoms. came to pick her up. CONDITION UPON DISCHARGE: Improved, better orientation, more engaged, linear, no SI, no HI, more interactive. DISCHARGE DIAGNOSES: Bipolar, depressed, severe. MEDICAL: Please see full H and P. PROGNOSIS: The patient follows up with outpatient mental health services and remains compliant with treatment. Prognosis will improve, otherwise guarded. [facility]# [id number]
== END 2019-09-19 10:30 | disposition home or self-care (01) | DRG 885 ==
LOC: GERO 21:00
PROVIDERS: ADMIT Psychiatry & Neurology Psychiatry; ATTEND Psychiatry & Neurology Psychiatry
DX: F31.89 Other bipolar disorder (principal); N39.0 Urinary tract infection, site not specified; F20.2 Catatonic schizophrenia; I10 Essential (primary) hypertension; E78.5 Hyperlipidemia, unspecified; E03.9 Hypothyroidism, unspecified; G62.9 Polyneuropathy, unspecified; G47.00 Insomnia, unspecified; I25.10 Atherosclerotic heart disease of native coronary artery without angina pectoris; Z86.73 Personal history of transient ischemic attack (TIA), and cerebral infarction without residual deficits; Z79.899 Other long term (current) drug therapy; Z90.49 Acquired absence of other specified parts of digestive tract; Z90.710 Acquired absence of both cervix and uterus; Z83.3 Family history of diabetes mellitus; Z82.49 Family history of ischemic heart disease and other diseases of the circulatory system; Z88.6 Allergy status to analgesic agent; Z88.8 Allergy status to other drugs, medicaments and biological substances; Z88.2 Allergy status to sulfonamides; Z88.5 Allergy status to narcotic agent
CPT/HCPCS: 36415-UA; 80048-TC; 80053-TC; 85025-TC; 90899; 97530; G0410; X3904; Z7610